=== PATIENT | female | born 1955 | race Caucasian/White ===

== ENCOUNTER 2017-09-26 12:44 | Emergency (ER) | payer OTHER ==
[2017-09-26] MEDS ORDERED: NA CHLORIDE 0.9% 1,000 ML ONE (13:13)
[2017-09-26] MEDS ORDERED: ONDANSETRON 4 MG/2 ML VIAL ONE (13:44)
[2017-09-26 13:49] LABS: Protime INR 0.99
[2017-09-26 13:57] LABS: Albumin 3.4 g/dL (3.4-5.0); Bilirubin Direct 0.1 mg/dL (0-0.2); Bilirubin Total 0.5 mg/dL (0.2-1.0); Magnesium 2.4 mg/dL (1.8-2.4); Potassium 4.1 mmol/L (3.5-5.1); Protein, Total 7.4 g/dL (6.4-8.2)
[2017-09-26 14:00] LABS: Urine Blood NEGATIVE (NEG); Urine Glucose NEGATIVE (NEG); Urine Protein TRACE (NEG); Urine Specific Gravity 1.025 (1.005-1.030); Urine pH 5.5 (5.0-7.0)
--- NOTE | 2017-09-26 14:08 | RAD REPORT ---
EXAM DESCRIPTION: RAD - Chest Single View - 09/26/2017 1:37 pm CLINICAL HISTORY: Dyspnea, syncope COMPARISON: None. TECHNIQUE: AP portable chest image was obtained 1319 hours . FINDINGS: Lung volumes are low. No peripheral mass or consolidation. No significant pulmonary edema. Heart size and vasculature are normal. Trachea is midline. Retrocardiac left base assessment is limited. Blunting of the left costophrenic angle is believed to be the affects of body habitus and portable technique. Significant pleural effusion is not suspected. There is no pneumothorax. Heart size is normal. No vascular engorgement. No gross bony abnormality s een. No acute aortic findings suspected. IMPRESSION: Examination is limited by portable technique and shallow inspiration. An acute cardiopul monary finding is doubtful.
--- NOTE | 2017-09-26 14:32 | RAD REPORT ---
EXAM DESCRIPTION: CT - Chest For Pe Angio - 09/26/2017 2:22 pm CLINICAL HISTORY: Shortness of breath, syncopal episode elevated D-dimer, dyspnea COMPARISON: None. TECHNIQUE: Dynamically enhanced 3 mm thick images of the chest were obtained during administration o f approximately 150mL Isovue 370 IV contrast. Coronal and oblique reconstruction images were generate d and reviewed. Exam utilizes a protocol to evaluate the pulmonary arterial tree. All CT scans are performed using dose optimization technique as appropriate and may include automated exposure control or mA/KV adjustment according to patient size. FINDINGS: No pulmonary emboli are identified. The aorta as imaged shows no acute or suspicious finding. No pericardial thickening or effusion. No infiltrate or mass in the lung parenchyma. No pleural effusion or pleural thickening. No mediastinal or hilar suspicious masses. No chest wall masses or abnormal axillary lymphadenopathy. No suspicious rib finding. Bilateral breast implants are in place. Thoracic spine degenerative malave es are present. No acute thoracic spine finding seen. IMPRESSION: No pulmonary emboli identified. No other significant or suspicious findings.
[2017-09-26 14:44] LABS: Absolute Lymphocytes (CBC) 1.7 K/uL (0.7-4.9); Absolute Monocytes 0.3 K/uL (0.1-1.3); Absolute Neutrophil 5.2 K/uL (1.8-8.0); Basophils % 0.7 % (0-1.3); Eosinophils % 0.7 % (0-4.4); Hematocrit 40.8 % (36.0-45.0); Lymphocytes % 23.2 % (15.3-44.8); MCH 33.2 pg (27.0-35.0); MCV 97.6 fL (80-100); Monocytes % 4.5 % (3.3-12.3); RBC Red Blood Cell Count 4.18 M/uL (3.86-4.86)
--- NOTE | 2017-09-26 15:10 | ER ---
Nurse's Notes [facility] Name: Ava Tellez Age: 62 yrs Sex: Female : 1955 Arrival Date: 09/26/2017 Time: 12:47 Bed 6 Private MD: Mahad Velazquez E Diagnosis: Syncope and collapse Presentation: 09/26 12:49 Presenting complaint: Patient states: i was at my friends house when i passed out, hj denies hitting head; witnesses states, passed out for 3-5 minutes; on triage, pt is sweating; T- 87; reports nausea and vomiting; denies chest pain or headache;. Transition of care: patient was not received from another setting of care. Onset of symptoms was September 26, 2017. Risk Assessment: Do you want to hurt yourself or someone else? Patient reports no desire to harm self or others. Initial Sepsis Screen: Does the patient meet any 2 criteria? No. Patient's initial sepsis screen is negative. Does the patient have a suspected source of infection? No. Patient's initial sepsis screen is negative. Care prior to arrival: None. 12:49 Method Of Arrival: Ambulatory hj 12:49 Acuity: LILI 3 hj 12:55 Note at one point in triage, pt complained of difficulty breathing, SOB and chest hj discomfort;. Triage Assessment: 12:53 General: Appears in no apparent distress. uncomfortable, Behavior is calm, cooperative, hj appropriate for age. Pain: Denies pain. Historical: - Allergies: 12:52 No Known Allergies; hj - Home Meds: 12:52 lisinopril 10 mg Oral tab 1 tab once daily [Active]; hj - PMHx: 12:52 Hypertension; hj - PSHx: 12:52 hip; Knee surgery; Cholecystectomy; hj - Immunization history:: Adult Immunizations up to date. - Social history:: Smoking status: Patient/guardian denies using tobacco, Patient/guardian denies using alcohol. - Ebola Screening: : Patient negative for fever greater than or equal to 101.5 degrees Fahrenheit, and additional compatible Ebola Virus Disease symptoms Patient denies exposure to infectious person Patient denies travel to an Ebola-affected area in the 21 days before illness onset. Screenin:53 Abuse screen: Denies threats or abuse. Denies injuries from another. Nutritional hj screening: No deficits noted. Tuberculosis screening: No symptoms or risk factors identified. Fall Risk None identified. Assessment: 13:35 General: Appears in no apparent distress. uncomfortable, obese, unkempt, Behavior is ae1 cooperative. Pain: Denies pain. Neuro: Level of Consciousness is awake, alert, obeys commands, Oriented to person, place, time, situation. Cardiovascular: Patient's skin is warm and dry. Respiratory: Airway is patent Respiratory effort is even, unlabored, Respiratory pattern is regular, symmetrical, Breath sounds are clear bilaterally. GI: Bowel sounds present X 4 quads. Abd is soft and non tender Reports nausea. : No signs and/or symptoms were reported regarding the genitourinary system. EENT: No signs and/or symptoms were reported regarding the EENT system. Derm: Skin is diaphoretic, Skin is pale, Skin temperature is warm. Musculoskeletal: Reports Generalized weakness. 13:49 Reassessment: Patient c/o nausea, provider notified, new orders received. ae1 14:39 Reassessment: Patient and/or family updated on plan of care and expected duration. Pain ae1 level reassessed. Patient returned from CT, at bedside. 14:46 Reassessment: Provider at bedside discussing plan of care. ae1 15:27 Reassessment: Patient appears in no apparent distress at this time. Patient and/or iw family updated on plan of care and expected duration. Pain level reassessed. Patient is alert, oriented x 3, equal unlabored respirations, skin warm/dry/pink. Patient states feeling better. Patient states symptoms have improved. Vital Signs: 12:53 BP 93 / 69; Pulse 86; Resp 18; Temp 97.8(O); Pulse Ox 98% on R/A; Weight 104.33 kg; mt Height 5 ft. 3 in. (160.02 cm); Pain 0/10; 13:25 BP 114 / 81 Supine; Pulse 72; Resp 14; Pulse Ox 99% on R/A; ae1 13:26 BP 107 / 83; Pulse 75; Resp 17; Pulse Ox 99% on R/A; mt 13:27 BP 117 / 90 Sitting; Pulse 77; Resp 14; Pulse Ox 99% ; ae1 13:29 BP 123 / 97 Standing; Pulse 84; Resp 16; Pulse Ox 98% on R/A; ae1 14:02 BP 129 / 87; Pulse 75; Resp 16; Pulse Ox 98% on R/A; ae1 12:53 Body Mass Index 40.74 (104.33 kg, 160.02 cm) wi ED Course: 12:47 Patient arrived in ED. mr 12:48 Mahad Velazquez MD is Private Physician. mr 12:51 Triage completed. hj 12:53 Arm band placed on right wrist. hj 12:53 Patient has correct armband on for positive identification. Placed in gown. Bed in low hj position. Call light in reach. Side rails up X 1. 12:58 João Landon MD is Attending Physician. kdr 12:58 Radu Schofield PA is PHCP. jr8 13:08 Mic Carpenter RN is Primary Nurse. ae1 13:10 EKG done, by gear technician. reviewed by Radu MAURER. at1 13:33 X-ray completed. Portable x-ray completed in exam room. Patient tolerated procedure jb2 well. 13:33 Inserted saline lock: 20 gauge in left antecubital area, using aseptic technique. Blood ae1 collected. 13:37 XRAY Chest (1 view) In Process Unspecified. EDMS 14:22 CT Chest For PE Angio In Process Unspecified. EDMS 15:09 Mahad Velazquez MD is Referral Physician. jr8 15:27 No provider procedures requiring assistance completed. IV discontinued, intact, iw bleeding controlled, No redness/swelling at site. Pressure dressing applied. Administered Medications: 13:14 Drug: NS 0.9% 1000 ml Route: IV; Rate: 1000 ml; Site: left antecubital; ae1 14:20 Follow up: IV Status: Completed infusion iw 13:59 Drug: Zofran 4 mg Route: IVP; Site: left antecubital; ae1 15:28 Follow up: Response: No adverse reaction iw Point of Care Testing: Blood Glucose: 12:53 Blood Glucose: 134 mg/dL; hj Ranges: Outcome: 15:09 Discharge ordered by . jr8 15:27 Discharged to home ambulatory, with family. iw 15:27 Condition: good 15:27 Discharge instructions given to patient, family, Instructed on discharge instructions, follow up and referral plans. Demonstrated understanding of instructions, follow-up care. 15:31 Patient left the ED. iw Signatures: Dispatcher [employer] EDMS João Landon MD MD kdr Rivera, Maria mr Felicity, Srini jb2 Lona Philippe, RN RN Radu Solis PA PA jr8 Irma jackson, director speech language EKG Tat1 Mohamud Myers RN RN hj Elliott, Andrea, RN RN ae1 Momo, [facility] Corrections: (The following items were deleted from the chart) 13:05 12:49 Presenting complaint: Patient states: i was at my friends house when i passed hj out, denies hitting head; witnesses states, passed out for 3-5 minutes; on triage, pt is sweating; T- 87; reports nausea and vomiting; denies chest pain or headache; hj 13:27 12:53 BP 93 / 69; Pulse 86bpm; Resp 18bpm; Pulse Ox 98% RA; Temp 87F Oral; 104.33 kg; mt Height 5 ft. 3 in.; BMI: 40.7; Pain 0/10; hj
--- NOTE | 2017-09-26 15:10 | EDPHYS ---
Physician Documentation [facility] Name: Ava Tellez Age: 62 yrs Sex: Female : 1955 Arrival Date: 09/26/2017 Time: 12:47 Bed 6 Private MD: Mahad Velazquez E ED Physician João Landon HPI: 09/26 14:38 This 62 yrs old Female presents to ER via Ambulatory with complaints of jr8 Passed Out Prior To Arrival. 14:38 The patient has experienced syncope, became unresponsive, lost consciousness. Onset: jr8 The symptoms/episode began/occurred acutely, today. Duration: This was a single episode. Context: the episode(s) was witnessed, by family. Associated injury: The patient did not suffer any apparent associated injury. Associated signs and symptoms: Pertinent positives: dizziness. Current symptoms: Currently, the patient is not experiencing any symptoms, the patient feels back to baseline, no decreased level of consciousness, no confusion, no dysphasia, no headache, no paralysis, no visual changes. The patient has not experienced similar symptoms in the past. The patient has not recently seen a physician. Patient stated that she was out in a barn but had fan out there. Was out there about 40 min. Stated that while standing felt suddenly sweaty and dizzy. Sat down. Soon after stated that they saw her pass out. They had laid her down at that time. Upon arrival here patient alert to person, place, time, event. Complains of general fatigue now . Historical: - Allergies: 12:52 No Known Allergies; hj - Home Meds: 12:52 lisinopril 10 mg Oral tab 1 tab once daily [Active]; hj - PMHx: 12:52 Hypertension; hj - PSHx: 12:52 hip; Knee surgery; Cholecystectomy; hj - Immunization history:: Adult Immunizations up to date. - Social history:: Smoking status: Patient/guardian denies using tobacco, Patient/guardian denies using alcohol. - Ebola Screening: : Patient negative for fever greater than or equal to 101.5 degrees Fahrenheit, and additional compatible Ebola Virus Disease symptoms Patient denies exposure to infectious person Patient denies travel to an Ebola-affected area in the 21 days before illness onset. ROS: 14:38 Eyes: Negative for injury, pain, redness, and discharge, ENT: Negative for injury, jr8 pain, and discharge, Neck: Negative for injury, pain, and swelling, Cardiovascular: Negative for chest pain, palpitations, and edema, Respiratory: Negative for shortness of breath, cough, wheezing, and pleuritic chest pain, Abdomen/GI: Negative for abdominal pain, nausea, vomiting, diarrhea, and constipation, Back: Negative for injury and pain, MS/Extremity: Negative for injury and deformity, Skin: Negative for injury, rash, and discoloration. 14:38 Neuro: Positive for dizziness, syncope, weakness. Exam: 14:38 Eyes: Pupils equal round and reactive to light, extra-ocular motions intact. Lids and jr8 lashes normal. Conjunctiva and sclera are non-icteric and not injected. Cornea within normal limits. Periorbital areas with no swelling, redness, or edema. ENT: Nares patent. No nasal discharge, no septal abnormalities noted. Tympanic membranes are normal and external auditory canals are clear. Oropharynx with no redness, swelling, or masses, exudates, or evidence of obstruction, uvula midline. Mucous membranes moist. Neck: Trachea midline, no thyromegaly or masses palpated, and no cervical lymphadenopathy. Supple, full range of motion without nuchal rigidity, or vertebral point tenderness. No Meningismus. Cardiovascular: Regular rate and rhythm with a normal S1 and S2. No gallops, murmurs, or rubs. Normal PMI, no JVD. No pulse deficits. Respiratory: Lungs have equal breath sounds bilaterally, clear to auscultation and percussion. No rales, rhonchi or wheezes noted. No increased work of breathing, no retractions or nasal flaring. Abdomen/GI: Soft, non-tender, with normal bowel sounds. No distension or tympany. No guarding or rebound. No evidence of tenderness throughout. Back: No spinal tenderness. No costovertebral tenderness. Full range of motion. Skin: Warm, dry with normal turgor. Normal color with no rashes, no lesions, and no evidence of cellulitis. MS/ Extremity: Pulses equal, no cyanosis. Neurovascular intact. Full, normal range of motion. Neuro: Awake and alert, GCS 15, oriented to person, place, time, and situation. Cranial nerves II-XII grossly intact. Motor strength 5/5 in all extremities. Sensory grossly intact. Cerebellar exam normal. Normal gait. Vital Signs: 12:53 BP 93 / 69; Pulse 86; Resp 18; Temp 97.8(O); Pulse Ox 98% on R/A; Weight 104.33 kg; mt Height 5 ft. 3 in. (160.02 cm); Pain 0/10; 13:25 BP 114 / 81 Supine; Pulse 72; Resp 14; Pulse Ox 99% on R/A; ae1 13:26 BP 107 / 83; Pulse 75; Resp 17; Pulse Ox 99% on R/A; mt 13:27 BP 117 / 90 Sitting; Pulse 77; Resp 14; Pulse Ox 99% ; ae1 13:29 BP 123 / 97 Standing; Pulse 84; Resp 16; Pulse Ox 98% on R/A; ae1 14:02 BP 129 / 87; Pulse 75; Resp 16; Pulse Ox 98% on R/A; ae1 12:53 Body Mass Index 40.74 (104.33 kg, 160.02 cm) mt MDM: 13:05 Patient medically screened. 8 15:07 Differential Diagnosis: cardiac arrhythmia, cerebrovascular accident, drug effect, jr8 emotional response, idiopathic syncope, pseudo seizure, seizure, transient ischemic attack, vasovagal episode. Data reviewed: vital signs, nurses notes, lab test result(s), EKG, radiologic studies, CT scan, plain films, and as a result, I will discharge patient. Data interpreted: Pulse oximetry: on room air is 98 %. Interpretation: normal. Counseling: I had a detailed discussion with the patient and/or guardian regarding: the historical points, exam findings, and any diagnostic results supporting the discharge/admit diagnosis, lab results, radiology results, the need for outpatient follow up, a bicycle i assembler, a family practitioner, to return to the emergency department if symptoms worsen or persist or if there are any questions or concerns that arise at home. Response to treatment: the patient's symptoms have resolved after treatment, patient is well hydrated. ED course: No acute findings on images. Patient feeling better. Recommended observation overnight in hospital but patient wishes to go home. Will send home with who will be with her for next 24 hours at least. Will come back if she worsens or another episode occurs . 09/26 13:05 Order name: Basic Metabolic Panel 8 09/26 13:05 Order name: CBC with Diff; Complete Time: 15:04 jr8 07/26 13:05 Order name: CPK 09/26 13:05 Order name: LFT's; Complete Time: 14:07 09/26 13:05 Order name: Magnesium; Complete Time: 14:08 09/26 13:05 Order name: NT PRO-BNP; Complete Time: 14:07 09/26 13:05 Order name: PT-INR; Complete Time: 14:08 09/26 13:05 Order name: Troponin (emerg Dept Use Only); Complete Time: 14:08 09/26 13:05 Order name: XRAY Chest (1 view); Complete Time: 14:21 09/26 13:05 Order name: DD; Complete Time: 14:07 09/26 13:06 Order name: Basic Metabolic Panel; Complete Time: 14:08 EDMS 09/26 13:06 Order name: Creatine Phosphokinase; Complete Time: 14:08 EDMS 09/26 13:53 Order name: CT Chest For PE Angio; Complete Time: 14:33 09/26 13:57 Order name: Urine Dipstick--Ancillary (enter results); Complete Time: 14:08 eb 09/26 13:02 Order name: EKG; Complete Time: 13:02 09/26 13:05 Order name: Cardiac monitoring; Complete Time: 13:24 09/26 13:05 Order name: EKG - Nurse/Tech; Complete Time: 13:24 09/26 13:05 Order name: IV Saline Lock; Complete Time: 13:24 09/26 13:05 Order name: Labs collected and sent; Complete Time: 13:25 09/26 13:05 Order name: O2 Per Protocol; Complete Time: 13:25 09/26 13:05 Order name: O2 Sat Monitoring; Complete Time: 13:09/26 13:05 Order name: Urine Dipstick-Ancillary (obtain specimen); Complete Time: 13:45 09/26 13:05 Order name: Orthostatics; Complete Time: 13:33 jr Administered Medications: 13:14 Drug: NS 0.9% 1000 ml Route: IV; Rate: 1000 ml; Site: left antecubital; ae1 14:20 Follow up: IV Status: Completed infusion iw 13:59 Drug: Zofran 4 mg Route: IVP; Site: left antecubital; ae1 15:28 Follow up: Response: No adverse reaction iw Point of Care Testing: Blood Glucose: 12:53 Blood Glucose: 134 mg/dL; hj Ranges: Critical Glucose Levels:Adult <50 mg/dl or >400 mg/dl <40 mg/dl or >180 mg/dl Disposition: 15:37 Co-signature as Attending Physician, João Landon MD I agree with the assessment and kdr plan of care. Disposition: 09/26/17 15:09 Discharged to Home. Impression: Syncope and collapse. - Condition is Stable. - Discharge Instructions: Syncope. - Medication Reconciliation Form, Thank You Letter, Antibiotic Education, Prescription Opioid Use form. - Follow up: Mahad Velazquez MD; When: Tomorrow; Reason: Recheck today's complaints, Continuance of care, Re-evaluation by your physician. - Problem is new. - Symptoms have improved. Signatures: Dispatcher [employer] EDMS João Landon MD MD [facility] Lona Philippe RN RN Radu Schofield PA PA jr8 Mohamud Myers RN RN Mic Carpenter RN RN ae1 Corrections: (The following items were deleted from the chart) 15:31 15:09 09/26/2017 15:09 Discharged to Home. Impression: Syncope and collapse. Condition iw is Stable. Forms are Medication Reconciliation Form, Thank You Letter, Antibiotic Education, Prescription Opioid Use. Follow up: Mahad Velazquez; When: Tomorrow; Reason: Recheck today's complaints, Continuance of care, Re-evaluation by your physician. Problem is new. Symptoms have improved. jr8
--- NOTE | 2017-09-26 19:05 | EKG ---
Test Date: 2017-09-26 Test Time: 13:05:28 Gas Technician: MAYELIN MEASUREMENT RESULTS: Intervals: Rate: 69 IA: 156 QRSD: 74 QT: 404 QTc: 432 [place]: P: 23 IA: 156 QRS: 10 T: 7 INTERPRETIVE STATEMENTS: Normal sinus rhythm Inferior infarct, age undetermined Abnormal ECG Compared to ECG 12/17/2005 10:04:21 Myocardial infarct finding now present Sinus bradycardia no longer present Electronically Signed On 09-26-17 19:04:46 CDT by Raphael Vazquez
== END 2017-09-26 15:31 | disposition home or self-care (01) ==
LOC: ER 12:44
DX: R55 Syncope and collapse (principal); I10 Essential (primary) hypertension
CPT/HCPCS: 36415; 71045; 71275; 80048; 80076; 81003; 82550; 82962; 83735; 83880; 84484; 85025; 85379; 85610; 93005; 96361; 96374; 99284; J2405; J7030; Q9967

== ENCOUNTER 2020-03-22 18:32 | Observation (INO) | payer OTHER ==
--- OUTSIDE RECORDS SUMMARY | 2020-03-22 18:35 | XMS REPORT | Summary of Care ---
:1955 Author Organization [facility] Address [address] [place] [id number] Care Team Providers Name Role Phone Caroline Mahad Devin Primary Care Provider Reason for Visit Reason Comments LAB covid testing- chills, body aches, headache, cough Encounter Details Date Type Department Care Team Description 03/14/2020 Traffic Incident Management Manager Visit [facility] Family Sabra Ta, SOLAR INSTALLATION FOREMAN [address] [place] [address] Exposure to Medicine - [facility], Adc Fam Pob I SARS-associated [address] [place] [address] coronaviru s ([address] Dx) [place] [address] Allergies No Known Allergiesdocumented as of this encounter (statuses as of 03/14/2020) Medications Medication Sig Dispensed Refills Start Date End Date Status hyoscyamine (LEVSIN) Take 1 Tab by 20 Tab 0 03/06/2015 Active 0.125 mg tablet mouth every 6 (six) hours as needed for Pain (scale 4-6). ondansetron (ZOFRAN Take 1 Tab by 20 Tab 0 03/06/2015 Active ODT) 8 mg mouth every 8 disintegrating tablet (eight) hours as needed for Nausea and Vomiting (N/V). cephALEXin 250 mg Take 2 capsules 9 capsule 0 01/02/2020 Active capsuleIndications: by mouth 2 (two) Puncture wound of left times daily. 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 documented as of this encounter Last Filed Vital Signs Not on filedocumented in this encounter Nursing Notes Mercedes Aguilar MA - 03/14/2020 9:20 AM CSTAva Tellez is a 65 year old female here for COVID Screening with a Nasopharyngeal Swab All droplet and contact precautions taken with appropriate PPE worn while interacting with patient. ? Goggles ? N95 Mask ? Gloves ? Gown RR18 Pulse Ox 98% Patient educated on plan of care for visit, swabbing technique, risks and benefits of test and length of time to receive results. Verbal consent obtained to perform test. CDC Fact Sheet for Patients nCoV Diagnostic Panel dated 05/17/2019 and Factsheet What to Do if Sick with COVID 19 04/27/19 provided. Patient swabbed per appropriate nasopharyngeal technique, and patient tolerated well. Patient was discharged from the testing clinic in stable condition. Mercedes Arndt MA 03/14/2020 9:37 AM Bilate nares swabbed during COVID19 nasopharyngeal swab. ITECTURAL ENGINEER documented in this encounter Plan of Treatment Name Type Priority Associated Diagnoses Order S chedule COVID-19 (MOLECULAR LAB Routine Exposure to SARS-asso ciated Ordered: 03/14/2020 TESTING coronavirus NUCLEIC ACID AMPLIFICATION) Health Maintenance Due Date Last Done Comments HEPATITIS C (HCV) SCREEN 1955 Depression Screening 1968 DTaP,Tdap,and Td Vaccines (1 - 01/24/1975 01/02/2020 Tdap) PAP SMEAR 01/24/1977 Breast Cancer Screening 1996 (MAMMOGRAM) COLON CANCER SCREENING ANNUAL 01/24/2006 FIT/FOBT COLON CANCER SCREENING FIT DNA 01/24/2006 EVERY 3 YEARS COLON CANCER SCREENING 01/24/2006 SIGMOIDOSCOPY EVERY 5 YEARS COLONOSCOPY 01/24/2006 Colorectal Cancer Screening 01/24/2006 Zoster Recombinant Vaccine 01/24/2006 (SHINGRIX) (1 of 2) INFLUENZA VACCINE Completed 11/03/2019 PNEUMOCOCCAL 0-64 YEARS COMBINED Aged Out No longer eligible based on SERIES patient's age to complete this topic documented as of this encounter Results Not on filedocumented in this encounter Visit Diagnoses Diagnosis Exposure to SARS-associated coronavirus - Primary documented in this encounter Additional Health Concerns Infection Onset Date Last Indicated Resolved Time COVID-19 Rule Out 03/14/2020 03/14/2020 documented as of this encounter documented as of this encounter
--- OUTSIDE RECORDS SUMMARY | 2020-03-22 18:35 | XMS REPORT | Summary of Care ---
:1955 Author Organization [facility] Address [address] [place] [id number] Care Team Providers Name Role Phone Mahad Velazquez Primary Care Provider Reason for Visit Reason Comments Results Encounter Details Date Type Department Care Team Description 03/16/2020 Telephone [facility] Urgent Provider, [facility] [address] [place] [address] [place] [phone] Allergies No Known Allergiesdocumented as of this encounter (statuses as of 03/17/2020) Medications Medication Sig Dispensed Refills Start Date [...] as of this encounter (statuses as of 03/17/2020) Active Problems Not on filedocumented as of this encounter (statuses as of 03/17/2020) Immunizations Name Administration Dates Next Due Td 01/02/2020 documented as of this encounter Social History Tobacco Use Types Packs/Day Years Used Date Never Smoker Sex Assigned at Date Recorded Not on file COVID-19 Exposure Response Date Recorded In the last month, have you been in contact with No / Unsure 03/14/2020 9:37 AM CERTIFIED REHABILITATION COUNSELOR someone who was confirmed or suspected to have Coronavirus / COVID-19? documented as of this encounter Last Filed Vital Signs Not on filedocumented in this encounter Miscellaneous Notes Telephone Encounter - Jenise Geiger LVN - 03/17/2020 11:29 AM CERTIFIED REHABILITATION COUNSELOR Notified results. elephone Encounter - Marissa Aguirre - 03/16/2020 11:15 AM CSTPatient is requesting a call back in regards to her covid results. Please advise. IFIED REHABILITATION COUNSELOR documented in this encounter Plan of Treatment Health Maintenance Due Date Last Done Comments [...] Results Not on filedocumented in this encounter Additional Health Concerns Infection Onset Date Last Indicated Resolved Time COVID-19 Confirmed 03/14/2020 03/14/2020 documented as of this encounter Insurance Payer Benefit Plan / Group Subscriber ID Effective Dates Phone Address Type [employer]ET[place] AET[place] CHOICE POS II [id number] 2019-Present POS [employer]ET[employer] AETNA PPO II [id number] 2015-Present PPO documented as of this encounter
--- OUTSIDE RECORDS SUMMARY | 2020-03-22 18:35 | XMS REPORT | Continuity of Care Document ---
:1955 Author Organization [facility] t Address [address] [place] [address] Care Team Providers Name Role Phone PITTS Primary Care Physician Unavailable SYSTEM, NOT IN Attending Clinician Unavailable Provider, Urgent Care Attending Clinician Unavailable Lab, Fam Pob I Attending Clinician Unavailable Diogenes VIVAS Attending Clinician Ben DOWLING, L Attending Clinician JOSHUA Attending Clinician Unavailable Joshua GIL Attending Clinician Shelbie DOWLING, A Attending Clinician Unavailable Sincere DOWLING D Attending Clinician Star GIL Attending Clinician Gloria Hoffmann Attending Clinician RAYSA Attending Clinician Unavailable Raysa PAPER HANGER Attending Clinician KALYAN Attending Clinician Unavailable Kalyan MAURER Attending Clinician Jose Martin RN, L Attending Clinician Unavailable Devin Maldonado MA Attending Clinician Unavailable Carlos GIL Attending Clinician Benjamin GIL S Attending Clinician Ana DOWLING D Attending Clinician Unavailable JOSHUA Admitting Clinician Unavailable Payers Payer Name Policy Type Policy Number Effective Date Expiration Date S bianca AETNA MANAGED [id number] MD Ibrahim CAREAETNA 00:00:00 [id number] Problems Condition Condition Condition Status Onset Resolution Last Treating Co mments Source Name Details Category Date Date Treatment Clinician Date Deformity Deformity Disease Active 2019-03 Overview: MD mathews of 0-19 Added Anderso reconstruc reconstruc 00:00: automatic n lluvia breast lluvia breast 00 ally from request for surgery [id number] Allergies, Adverse Reactions, Alerts Allergy Allergy Status Severity Reaction(s) Onset Inactive Treating Comm ents Source Name Type Date Date Clinician No Known DA Active U 2013-03 [facility] 04-04 [place] Allergie 00:00: d s 00 [facility] Social History Social Habit Start Date Stop Date Quantity Comments Source Sex Assigned At F MD Carmona on Exposure to Not sure MD Ibrahim SARS-CoV-2 (event) Tobacco use and 2020-02-18 2020-02-18 Never used MD Carmona on exposure 00:00:00 00:00:00 Alcohol intake 2020-02-18 2020-02-18 Lifetime MD Medina n 00:00:00 00:00:00 non-drinker (finding) Smoking Status Start Date Stop Date Source Never smoker MD Ibrahim Medications Ordered Filled Start Stop Current Ordering Indication Dosage Frequency Signature Comments Components Source Medication Medication Date Date Medication? Clinician (SIG) Name Name cefadroxil 2019-03 Yes Deformity 500mg Take 1 MD OLGUINICEF) 2-15 of capsule Anderso 500 mg 00:00: reconstruct (500 mg) n capsule 00 ed breast by mouth twice daily. traMADol 2019-03 Yes Deformity 50mg Take 1 MD (Ultram) 50 2-15 of tablet (50 An derso mg tablet 00:00: reconstruct mg) by n 00 ed breast mouth every 4 (four) hours as needed for moderate pain. lisinopril 2019- No 10mg Take 10 mg MD (JESSICAIL,Z 9-16 10-17 by mouth And erso ESTRIL) 10 00:00: 04:59 daily. n mg tablet 00 :00 lisinopril Yes Take by (NAAZ 9-21 mouth Anderso ESTRIL) 10 00:00: daily. n mg tablet 00 Vital Signs Vital Name Observation Time Observation Value Comments Source HEIGHT 2020-02-11 09:47:13 158.5 cm WEIGHT 2020-02-11 09:47:13 111 kg HEIGHT 2020-02-11 09:47:13 158.5 cm WEIGHT 2020-02-11 09:47:13 111 kg HEIGHT 2019-12-03 09:36:00 158.5 cm WEIGHT 2019-12-03 09:36:00 110.9 kg HEIGHT 2019-12-03 09:36:00 158.5 cm WEIGHT 2019-12-03 09:36:00 110.9 kg Systolic blood pressure 2020-02-22 19:04:33 125 mm[Hg] MD Ibrahim Diastolic blood pressure 2020-02-22 19:04:33 86 mm[Hg] MD Ibrahim Heart rate 2020-02-22 19:04:33 98 /min MD Malcom patel Body temperature 2020-02-22 19:04:33 36.39 Emiliana MD Gloria baldwin Respiratory rate 2020-02-22 19:04:33 20 /min MD Gloria baldwin Oxygen saturation in 2020-02-16 23:00:00 95 /min MD Ibrahim Arterial blood by Pulse oximetry Body height 2020-02-11 15:47:13 158.5 cm MD العراقي amanda Body weight 2020-02-11 15:47:13 111 kg MD Malcom patel BMI 2020-02-11 15:47:13 44.18 kg/m2 MD Malcom patel Procedures Procedure Date / Time Performed Performing Clinician [facility] e PATHOLOGY SURGICAL 2020-02-16 19:42:00 Mario Lewis MD Mathew on INTERPRETATION REMOVAL OF BREAST IMPLANT 2020-02-16 18:22:00 Mario Lewis MD IMMEDIATE INSERTION OF BREAST 2020-02-16 18:22:00 Mario Lewis MD PROSTHESIS FOLLOWING MASTOPEXY, MASTECTOMY OR IN RECONSTRUCTION MASTOPEXY 2020-02-16 18:22:00 Mario Lewis MD POC GLUCOSE SCREEN 2020-02-16 17:29:00 Mario Lewisers on COVID-19 (SARS-COV-2) 2020-02-14 17:09:00 Mario Lewis MD And vonon PCR-ASYMPTOMATIC MC CONFIRM ABORH TYPE 2020-02-14 17:01:00 Mimi Tabares MD Mathew on TYPE AND SCREEN 2020-02-14 17:00:00 Mimi Tabares MD ABORH 2020-02-14 17:00:00 Mimi Tabares MD ANTIBODY SCREEN 2020-02-14 17:00:00 Mimi Tabares MD CLOT EXPIRATION DATE 2020-02-14 17:00:00 Mimi Tabares MD rson TMP INTERPRETATION ANTIBODY 2020-02-14 17:00:00 Mimi Tabares MD SCREEN NEGATIVE BLOOD UREA NITROGEN 2020-02-11 14:26:00 Kiran Biggs MD Malcomkirstin patel COMPLETE BLOOD COUNT W/ 2020-02-11 14:26:00 Kiran Biggs MDrson DIFFERENTIAL SERUM CREATININE 2020-02-11 14:26:00 Kiran Biggs MD ELECTROLYTE PANEL 2020-02-11 14:26:00 Kiran Biggs MD n GLUCOSE, RANDOM 2020-02-11 14:26:00 Kiran Biggs MD HEMOGLOBIN A1C 2020-02-11 14:26:00 Kiran Biggs MD SERUM CREATININE 2020-02-11 14:26:00 Kiran Biggs MD .GLOMERULAR FILTRATION RATE 2020-02-11 14:26:00 Kiran Biggs MD Results CBC 2020-02-11 14:26:00 Kiran Biggs MD MANUAL DIFFERENTIAL 2020-02-11 14:26:00 Kiran Biggs MD EKG, 12-LEAD (SCHEDULED) 2020-02-11 00:00:00 Kiran Biggs MD MRI BREAST BILATERAL WO 2019-12-17 18:40:22 Alicia Gonzalez MDrson CONTRAST MAMMO DIGITAL SCREENING LEFT 2019-12-17 14:58:32 Alicia Gonzalez MD HC 2018-NCOV COVID-19 2019-12-01 13:12:00 Mario Lewis MD And sandeep Encounters Start End Encounter Admission Attending Care Care Encounter Source Date/Time Date/Time Type Type Clinicians Facility Department ID 2019-11-30 Outpatient SYSTEM, MDA MARYAM [id number] 09:51:00 PROVIDER Mathew o n 2019-11-18 Outpatient SYSTEM, MARYAM FRANCISCO [id number] 13:00:23 PROVIDER Mathew o n 2020-03-16 2020-03-16 Telephone Provider, [facility] [id number] 00:00:00 00:00:00 [facility] [id number] Care Surgical [id number] Specialti [id number] [address] [place] 2020-03-14 2020-03-14 Con[facility] Lab, Adc [facility] [id number] 09:25:48 09:40:48 Visit Fam Pob I Health [id number] [place] 4.2.7.2.686 Professio [id number] nal [address] 2020-02-22 2020-02-22 Outpatient DEBBI LEWIS, MDA MDA [id number] 13:01:40 14:05:20 MARIO mccain 2020-02-16 2020-02-16 Outpatient DEBBI LEWIS, MDA Plastic [id number] 08:57:00 17:32:00 MARIO mccain 2020-02-14 2020-02-14 Outpatient DBEBI TABARES, MDA MDA [id number] MD 10:53:28 23:59:00 MIMI mccain 2020-02-14 2020-02-14 Outpatient DEBBI BIGGS, MDA MDA [id number] MD 11:04:38 11:14:34 KIRAN Campuzanoers o adán 2020-02-11 2020-02-11 Outpatient DEBBI BIGGS, MDA MDA [id number] MD 08:15:00 23:59:00 KIRAN mccain 2020-02-11 2020-02-11 Outpatient DEBBI BIGGS, MDA MDA [id number] 11:00:24 11:55:04 KIRAN Campuzanoers o adán 2020-02-11 2020-02-11 Outpatient DEBBI LEWIS, MDA MDA [id number] 09:14:13 10:45:41 MARIO mccain 2020-02-11 2020-02-11 Outpatient DEBBI BIGGS, MDA MDA [id number] MD 08:31:02 09:14:18 KIRAN Campuzanoers o adán 2020-01-02 2020-01-02 Emergency [facility], [facility] [id number] 03:30:00 04:43:00 Michael Beltran [id number] [place] 4.2.7.2.686 [place] [id number] 2019-12-25 2019-12-25 Outpatient MDA MDA [id number] MD 08:49:37 08:49:37 Mathew o n 2019-12-25 2019-12-25 Outpatient MDA MDA [id number] MD 08:49:37 08:49:37 Mathew o n 2019-12-25 2019-12-25 Outpatient MDA MDA [id number] MD 08:49:34 08:49:34 Mathew o n 2019-12-25 2019-12-25 Outpatient MDA MDA [id number] MD 08:49:30 08:49:30 Mathew o n 2019-12-25 2019-12-25 Outpatient MDA MDA [id number] MD 08:49:20 08:49:20 Mathew o n 2019-12-25 2019-12-25 Outpatient MDA MDA [id number] MD 08:49:20 08:49:20 Mathew o n 2019-12-24 2019-12-24 Outpatient MDA MDA [id number] MD 13:52:41 13:52:41 Mathew o n 2019-12-24 2019-12-24 Outpatient MDA MDA [id number] MD 13:52:37 13:52:37 Mathew o n 2019-12-24 2019-12-24 Outpatient MDA MDA [id number] MD 13:52:36 13:52:36 Mathew o n 2019-12-17 2019-12-17 Outpatient EL JOSHUA, MDA MDA [id number] MD 10:09:06 10:09:06 MARIO Mathew o n 2019-12-17 2019-12-17 Outpatient EL JOSHUA, MDA MDA [id number] MD 09:26:54 09:26:54 MARIO Mathew o n 2019-12-03 2019-12-03 Outpatient EL JOSHUA, MDA MDA [id number] MD 09:25:51 10:56:41 MARIO Mathew o n 2019-12-01 2019-12-01 Outpatient EL MDA MDA [id number] MD 08:07:20 08:07:20 Mathew o n 2019-11-10 2019-11-10 Laboratory Lab, [facility] [id number] 08:58:37 09:18:37 Only Fam Pob I Health [id number] [place] 4.2.7.2.686 [facility] [id number] nal [address] One Results Test Description Test Time Test Comments Results Result Comments Source Pathology Surgical Interpretation 2020-02-19 18:39:00 Test Item Value Reference Range Interpretation Comme nts Diagnosis u0squXQmYBHvxTY5VhGrNUFgj1iad2TgyLHslZVwVBydtUDmlgFvjd59gPL8tL04XM3nVBWgYvL8HVSw viF4Ihc3OLKqZHRkjPVuW284p5amh8mczmWqkKR8bNxvJFZxCBXpSXolAEQrUiQqJSmhYrCwRXS9DUEx VLC2SFEypWBmZC81CwffNUEavZMpBOreQlWfZDvqvua (test code bVDUSktJev4OegN7fbFOweEwjR5Fos0MhWKovmWvsEBDkw96zc79gfV6dpTEzRHFkptRxkEAvKXZ1YOQ wYSShwGB6bCOlgPUgSTrsZhV5CSMlbyfoJZKjaJl1BkWnwMkkCeXmWOJvyK4pBU5mYDU1PxM1uCIkLS3 2diZ0bBVujPLbTZ7yG3H1dJMwBEIagbLwNGPxnQ8wcF = 34) VxHRtxIAFviGgqMIgbejKcrFLtZIH5JURfLGTchEbermvwfRSeSBoynHszblB0XBLzkcooNIWchAz3Zq FexPkpNpSePHLnYJNdnOKieSPoOJ63WPVpqg7tdlLmlQHlvN6hdNfoehIyqqg4AvuqFLWzoAxnRNwxiw BccGFyfQ== Gross q8mcbKYdRYGwpFZJZUFmFVwhjrXsIQOddAMgW2EmsuvtERqfWS9eYQ9tgPgyvRRlpPEbPL1EGFHgWpHl NZXcqGDerxZmZqJtUKIpdAKtgUL4VARdKO1qcfkmCIgiNRwqDTPpyzX5TZOorAHyQ7IyQBJeTK1fhdll JGF0RQcssY6zwuQTGiotXo6ljABlnViiGaSoQgZhDTV Descriptio lFSHeOXVgaZjmOQTxDYn8mO1PIfvyVHN4BNEGWgwpEPKxNL0Na3ptFUHamYQqVXC4IFgqpUXaODZuULW qDKt0QQRrHUejaIOhDV9hfOidMjjlqXfob3CylDOoNQgmTPNbYBMpELxeYZNsZV7URzKqPSKgSQL3WeO eVQi5OKw5KF8QXwZxSNCeOXsjVet9JBBqSZt1AHxePY n (test 1QTWGoRVEzDyNmHIN0XLbiZkTbCQRqTnMaNFThGCJyGJkyYLpmegVpASOiLNEgTGxdBftjEIjnZ78peQ slqW0dVofmkcEgWAI8EHBpsyMGMpxqlXZtzvuryImhWiTpxDTuOdNfDVrjvQAudCOfFGopbhIhhsnlEK CSSuxjcRRupLjmWGEgGwMpZeKwZTI7OXBzHFF6IOTxz code = DBvCR53OFEzHXN8MOOfYBDvzPWuzXRoKZ20XMNor2NxtADic34xpXWpYUSqNAGaTNYkUH3oNKPnGLsrD sJbQBDyMFArZVF5ZQNmTlOiaWN1FmUyV43fWYZxHONdcMVokLCtHR01ZSKpcTslLKD8zZWrUGQcSVGcU SVdhQceCEvmuFbggZMpUiYuoxTmkdBlPT1pJHolOC14 [id number] hKS5hE2rNLocNt2tpME9wF7hJEjeAHSvFLEatLonl5W6RLAySOJoTsPyU1Qlh6EsqSyveR2yWDcoaqCl ItJapcY8WCdrvmYsImN3lMJfy0DqO2dmLY1zJNZDqq5xtiOvsby1DeRtIEFms3DiI6U2ZLZyPLanv7ay EHStOMhcz0HjOLqXSFTIKF4JRD2qaNC1KWgQE7VHJ6u ) [file] hcZnMyMCANClxwbGFpblxlcGljTmVzdERvYzBccGxha H13MKMecZIlEIV4FC9tGQJzggzhCZUxCKKmINT8TGnjcX91rJWnHPQnKEMxuYOfdK4Rg2uxNDCvbXZoU EW6IZwobIVmZHLrVFTwCEznTbFvB8CAIFRtQgV6IAjaUJLsSWz2UGihI2QJSMOpQEL5HhWhFPs8FuT9U Ow5TQHXEl7dZaW2YPU7PqHcSQX1YHKaKGlxhWYpMRpe BhLSuemygOEbFONiUOIoQSjxMvZcGXrapSLySM1keYrkZPNyEaDmFyjpxXUqOD5KSGAmFAkbUKAqlWQF NLH0PL8tPEPRMzpyvMYtCKGzpZsyEDoaqB6zTF8MHXj5spHgXSZeUtQsHRNStjGaa3CmUMReU7s6XAEr xZDaJU92NTIqpDfqlAHigvBla4WdaS1brAZupIsbPh2 lJWayEB6yvHclUBQrNGXkRX9jXSVjUPgnAuPaSUQvTJToAVN7BWJ5FhHgaEM5CqPtQ67uCPCwAUJvgOW clWTyUT89YCJblSomWCP1jOAyMOUuKIJlSLXzwTxgVVoudVdkmBYmKrMulgLcrsQzHO5eGEytKQ68lLS 7uX2iUIwyNb1aiUG7vL7sVWxoXIMxEUEqzHatr8F0FK N2ZgLcWuHaQ5Edh5CmiWehxM3hDKenrhItFpVkwcK0OBzbrnAqDnL7eYTzl4VgW6ypWH5iIEKMwc4uog Pxczg9VbGiKalOYeotiKMghgbjeUvsWuXhgZHaKkKbqWvhjG70YJKgxJCjGSS3JV8wHIHfmjvgOZFlFE ZtYUS7CDfgdJ02rFCpYEKoLKVyzKXoiX6BGHKgCTN0L BtpzT36mAEeRI8ETCFoQHM1VZGifFShNAR0BE8qeY2FuE== Disclaimer z0vyqEMzARPckUZzGsWxPRWlDMKmr8vtBSXwrWGwQoIqSsFrQlHrHlyjpCZxJMXlNdJwk1kqc339pHIo z3jyGOQnZlK1pUSyJCDvmVRfD998HXCgYHurf2bpd1ZkBPUyiBKio3I2KLUZpiyuaUd1dGtzO74eb1Y3 QpmoD6yyLWLlMQBeE6YoLZ3fWWUkZum8LCE0NMK8RPL (test code iEJEkZ1PdGQ2hZXDpnZAfZCl1t0ikhFviXHLpBPM5x8ofGJybxvKuAE6ybp0cyGn3u8sdhrMsKBMuTCM ezCSYBUHhX4XhvXhgNx3zrCf1tHxlEzgkCQB4Hlh7WK1jfj83rfd0hWsfUNTjhugrNjG6SLgtVTGyojs lGBa0GBgjFZVxsRZ7VABwzUBrX3AxCUHxRU3qnar3RZ = 9844) W0YGycCHGdNeN3NRNdiWQqNDNyiQkfSNqlc064PVN4RaTlWL1bZ9Ydm1F9xS1zaTXqEHGlsCDlFsJnSK Gimt1dwWIqPPdue6UmDIF3wsX5aNOgvNTsFINcPC94Cebhr7PfMrdyRFB7MKTrtpXfa6Drv7mgDyKqcw XpE3xxM2XhCFEoWTSkTOBmGiEczrOpd2Vbi8OgiXQri Gx5j5hpDJIoJSRklIzow9baJGR0DKXlU2S4mJEwy1onMHnvHPPbiPD4soD5GGGjpMCpK3CxbC4aOQFiD G1agpq1s7tcORZ5HYetBGWqUwS0yeT9HPWngZPmSIFiwUfdFVjrg530NJG0RkEvOREws4OdY7RwoXkvW 75glIhfF56wEYLibItlgY2jyAvfuH1cRpSpLjObSXbv qVhqzLBsilecNBxghjR1KIpbyhuuZYElPAxoB5jfAmLwSHDbaXjmYNpmn6RaXTKhYQStOygwnlS6DXTG v62hMCSlh0VtMYQzyL8kkMFjFMfelbXndUU0UOqqtzJfVkBfgrLvTGKwyU4wSQPjML8lXJXfozKjfj4i tbJsHTCrDMKmD6MfucppwUsvymVtPFThdi0bpkAoGTO 6IINTTX7QLPZgKESkr83wLCWjrUwoyF4ldIKfieGeXLCar2ZmkQ6rkAHJVPOoL7lvAN6gOLtyk8AbiXB ecIZquDC4AJYec7FtWpRcylYkpSFbmBMjZ2UmkWblL7ycKXGiVZTahhOrjHImw5XmGHDmcCU6pKXvWZ0 LGyAMq64rQALrCZEVboVbFIKqdJvxrSR2mtM7aY9eIz ZYQiTeyYAjbZLxKfclWMPmf740mf2jauW5PGWdOFLufvlko3ElEGYlDSNhdO26CIAtVDUxqo9izorwcH JpmvCvM0Pjkvu3vW1cQQGbSObjNDYnIAYeRrWktWLlWsPwQuByrHwccLnpKYrgDvQfCTFaNSlwN4olZk FcZnMyMlxwYXJ9 [facility] Glucose [id number] 17:50:28 Test Item Value Reference Range Interpretation Comments POC Glucose (test 87 mg/dL 70-99 Capillary blood samples, code = 17164-8) e.g. obtaine d by fingerstick, jerome y have inaccurate resu lts in patients with d ecreased peripheral bloo d flow. Method descript ion: All results are santana sured using Electrochemistr y test methodology. Th e glucose in the sample mixe s with the reagents on the test strip. The reaction pr oduces an electric curren t. The amount of curre nt produced is proportional to the glucose concent ration in the blood. PO Sample Type Venous (test code = 9554) MD IbrahimCOVID-19 (SARS-CoV-2) PCR-Asymptomatic [id number] 02:11:21 Test Item Value Reference Range Interpretation Comments COVID19 (SARS Not Detected Not Detected This test is a CoV-2) Result qualitative (test code = reverse-transcr iptase 17897-7) polymerase sharlene n reaction (RT-PC R) developed for t he Andrew JUNE 680 0 system and inte nded for the detecti on of SARS CoV-2 RNA in human nasophary ngeal specimens from patients who me et COVID-19 clinic al and/or epidemiological criteria. This assay has been approv ed by the FDA for use only under Emergency Use Authorization ( EUA) in laboratories that have been CLIA-certified to perform moderate-comple xity and high-comple xity tests. The performance characteristics of this assay were verified by the Microbiology Laboratory at [facility], CLIA Accreditation # : [id number] and CAP Accreditation # : [id number]. Result s must be interpreted within the context of all relevant clinic al and laboratory find ings and should not form the sole basis for a diagnosis or treatment decis ion. "Presumptive Positive" resul ts are due to partial amplification o f SARS-CoV-2 targ ets and indicates l ow amounts of viru s present in the specimen at or near the limit of detection. Regardless, individuals wit h "Presumptive Positive" resul ts should be manag ed per institutional guidelines as individuals pos itive for SARS-CoV-2 virus, including use o f appropriate inf ection control protoco ls. Internal contro ls are included to ass ess for possible amplification inhibitors. If inhibition is detected, testi ng is repeated and if inhibition is confirmed the specimen is res ulted as "Invalid". W hen an "Invalid" resul t occur, it is recommended to wait 3 days before submitting a ne w specimen for te sting if clinically indicated. COVID19 SARS PAPER HANGER Swab Source (test code = 92492) COVID19 SARS Pre-OR Procedure Indication (test code = 62418) MD IbrahimTMP Interpretation Antibody Screen [id number] 00:24:42 Test Item Value Reference Range Interpretation Comments TMP Auto Neg At the present ABSC Interp time, patient (test code = plasma shows no ____KEILA PAPPAS 7535) evidence of RBC CHRIS TRAVIS MD alloantibodies. - [id number] lluvia by: KEILA GHOSH MD - [id number] Date/Time: 02.01 18:24 PM NEEDLEWORKER Transcribed [place] e/Time: 02.14.2020 18:2 4 PM CSTElectronical ly Signed By: KEILA GHOSH MD - [id number] on 18:24 PM MD IbrahimAntibody [id number] 19:03:15 Test Item Value Reference Range Interpretation Comments ABSC. (test code = 890-4) Negative ABSC MD [id number] 19:03:14 Test Item Value Reference Range Interpretation Comments ABORh. (test code = 882-1) O POS MD IbrahimClot Expiration [id number] 19:03:11 Test Item Value Reference Range Interpretation Comments T & S Expiration (test code = 02/17/2020 5318) MD IbrahimConfirm [id number] 19:02:35 Test Item Value Reference Range Interpretation Comments ABORh Confirm. (test code = 882-1) O POS MD IbrahimHemoglobin [id number] 15:19:58 Test Item Value Reference Range Interpretation Comments A1C (test code = 5.5 % 4.3-5.6 HbA1c value s >=6.5% are 4632) diagnostic of d iabetes mellitus.Diagno sis should be confirmed by repeat testing.Therape utic Action suggested: >8.0 % HbA1c; Goal oftherapy: <7.0% HbA1c MD IbrahimGlucose, [id number] 15:19:56 Test Item Value Reference Range Interpretation Comments Glucose Random (test 111 mg/dL 70-199 Effecti ve 09/28/15, the code = 9360) glucose referen ce intervals have been updated based o n [place] [employer] eddie delines (Standards of M edical Care in Diabete s 2016. Diabetes Care 2 016; 39: S13-S22)Fasting blood glucose:Normal: 70 99 mg/dLImpair ed fasting glucose (increased risk for diabetes or pre-diabetes): 100 125 mg/dLDiabe juliano mellitus: >/= 1 26 mg/dLRandom blo od glucose:Normal: 70 199 mg/dLNote: Random glucose >100 mg /dL is associated with increased risk for diabetes Testin g Performed at [facility] Lab [facility], [address], [place] [address] MD IbrahimGlomerular Filtration [id number] 15:19:55 Test Item Value Reference Range Interpretation Comments eGFR-AA (test 104 >=60 mL/min/1.73 sq. Normal eGFR >= 60 code = 8062) m mL/min/1.73 m2 Note: The eGFR is calcula lluvia using the CKD-EPI equ ation. The eGFR declines w ith age. eGFR <60 mL/min /1.73 m2 is considered as " decreased". This equation s hould only be used for pat ients 18 and older. Acco rding to the National Ki dney Foundation's Ki dney Disease Outcome Quality Initiative (KDO QI) classification and 2012 Kidney Disease Improving Global Outcomes (KDIGO) Clinical Practi ce Guideline, the stage of CKD should be c ategorized based on estima lluvia GFR. Stage Descripti on GFR mL/min/1.73 m21 Normal or high GFR >=902 Mildly de creased GFR 60-893a Mildly to moder ately decreased GFR 45-593b Moderately to s everely decreased GFR 30-444 Severely decrea sed GFR 15-295 Kidney failure <15 Testing Performed at [facility] Lab Ambu [facility] Bldg, [address], [place] [address] eGFR-PURNIMA (test 90 >=60 mL/min/1.73 sq. Breanna l eGFR >= 60 code = 8063) m mL/min/1.73 m2 Note: The eGFR is calcula lluvia using the CKD-EPI equ ation. The eGFR declines w ith age. eGFR <60 mL/min /1.73 m2 is considered as " decreased". This equation s hould only be used for pat ients 18 and older. Acco rding to the National Ki dney Foundation's Ki dney Disease Outcome Quality Initiative (KDO QI) classification and 2012 Kidney Disease Improving Global Outcomes (KDIGO) Clinical Practi ce Guideline, the stage of CKD should be c ategorized based on estima lluvia GFR. Stage Descripti on GFR mL/min/1.73 m21 Normal or high GFR >=902 Mildly de creased GFR 60-893a Mildly to moder ately decreased GFR 45-593b Moderately to s everely decreased GFR 30-444 Severely decrea sed GFR 15-295 Kidney failure <15 Testing P erformed at [facility] Lab Ambulat [facility], [facility], [address], [place] [address] MD IbrahimElectrolyte [id number] 15:19:54 Test Item Value Reference Range Interpretation Comments Sodium Lvl (test code = 140 136- 145 mEq/L Te sting Performed at [facility] 7311) Lab [facility] Bldg, [facility], [address], [place] [address] Potassium Lvl (test code 4.1 3.5- 5.1 mEq/L T esting Performed at [facility] = 1572) Lab [facility], [facility], [address], [place] [address] Chloride (test code = 105 98- 107 mEq/L Testi ng Performed at [facility] 5270) Lab [facility], [address] [place] [address], [address], [place] [address] CO2 (test code = 5227) 26 22- 29 mEq/L Testi ng Performed at [facility] Lab [facility], [facility], [address], [place] [address] Anion Gap (test code = 9 4- 14 mEq/L Testi ng Performed at [facility] 9344) Lab [facility], [address] [place] [address], [address], [place] [address] MD Ibrahim.Serum [id number] 15:19:53 Test Item Value Reference Range Interpretation Comments Creatinine (test code 0.71 mg/dL 0.51-0.95 Testin g Performed at = 5366) [facility], [address] [facility], [address], [place] [address] MD [id number] 15:19:52 Test Item Value Reference Range Interpretation Comments BUN (test code = 19 mg/dL 6-23 Testing Per formed at [facility] 5055) [facility] [employer] [facility], [address], [address], [place] [address] MD I[id number] 15:03:02 Test Item Value Reference Range Interpretation Comments Neutrophil % (test code 44.8 % 42-66 As p art of = 6491) Differential performed at [facility] [employer] [facility], [address] [facility], [address], [place] [address] Lymphocyte % (test code 41.7 % 24-44 = 6194) Monocyte % (test code = 9.1 % 2-7 H 6422) Eosinophil % (test code 2.9 % 1-4 = 5520) Basophil % (test code = 1.3 % 0-1 H 5068) IGRE % (test code = 0.2 % 0-0.4 IGRE % c ount includes 5958) Metamyelocytes, Myelocytes, and Promyelocytes. As part of Differe ntial performed at [facility] [employer] [facility], [address], [address], [place] [address] Neutrophil Abs (test 2.47 K/uL 1.7-7.3 code = 6492) Lymphocyte Abs (test 2.30 K/uL 1-4.8 code = 6195) Monocyte Abs (test code 0.50 K/uL 0.08-0.7 = 6423) Eosinophil Abs (test 0.16 K/uL 0.04-0.4 code = 5521) Basophil Abs (test code 0.07 K/uL 0-0.1 = 5069) IG Abs (test code = 0.01 K/uL 0-0.04 5954) Lab Interpretation Abnormal (test code = 51410-6) MD Ibrahim.[id number] 15:02:59 Test Item Value Reference Range Interpretation Comments WBC (test code = 8034) 5.5 K/uL 4-11 RBC (test code = 6932) 4.23 4.00- 5.50 M/uL Hgb (test code = 5898) 13.7 12.0- 16.0 gm/dL A s part of CBC or as an individual orderable testi ng performed at [facility] [employer], [address], [place] [address] Hct (test code = 5860) 43.6 % 37-47 As pa rt of CBC or as an individual orderable testi ng performed at [facility] [employer], [address], [place] [address] MCV (test code = 6222) 103 fL 82-98 H MCH (test code = 6220) 32.4 pg 27-31 H MCHC (test code = 6221) 31.4 31.0- 36.0 gm/dL RDW-SD (test code = 46.4 fL 35.1-46.3 H 6972) RDW-CV (test code = 12.3 % 12-15.5 6971) Platelet count (test 317 K/uL 140-440 As part of CBC or as code = 6832) an individual orderable testi ng performed at [facility], [address], [address], [place] [address] MPV (test code = 6282) 9.7 fL 4-10.4 INRBC (test code = 0.0 % <=0.0 The INRBC (instrument 5974) NRBC) value ref lects the enumeration of nucleated red b lood cells contained in a 200uL sampleof whole blood analyzed by the instrument. Thi s value maydiffer from the NRBC value reported in a m anual differential,wh ich is based on a 100 cell differential. A s part of CBC testing performed at [facility] [id number], [place], [place] [address] Lab Interpretation Abnormal (test code = 82344-2) MD IbrahimScreening Mammogram - [id number] 18:07:33 Test Item Value Reference Range Interpretation Comments IMP (test code = IMP) Asymmetry in the left breast requires additional imaging evaluation. Additionalviews and possible ultrasound to follow are recommended. BI-RADS Category 0:Incomplete: Needs Additional Imaging Evaluation PXN (test code = PXN) Interface, Radiology Results In - 12/25/2019 1:07 PM CDTCLINICAL INDICATION:Patient is a 64 year old female and is seen for screening. MAMMO DIGITAL SCREENING LEFTDigital Mammogram evaluated with Computer Aided Detection (CAD). COMPARISON:The present examination has been compared to prior imaging studies performed atan outside location on 11/17/2014, 02/09/2016, 02/12/2017, 01/16/2018 and02/09/2019. FINDINGS:There are scattered areas of fibroglandular density. There is a retro-pectoral saline implant in the left breast. There is an asymmetry measuring 0.6 centimeters seen in the CC view in the leftbreast upper hemisphere at 12 to 1 o'clock located 4 centimeters from the nipple. IMPRESSION:Asymmetry in the left breast requires additional imaging evaluation. Additionalviews and possible ultrasound to follow are recommended. BI-RADS Category 0:Incomplete: Needs Additional Imaging Evaluation Lab Interpretation Abnormal (test code = 63594-4) MD MotaI Breast Bilateral without [id number] 18:47:00Bilateral intact saline implants as noted above. ACR BI-RADS Category: 2. [facility], Radiology Results In - 12/17/2019 1:49 PM CDTFULL RESULT:Examination: MRI BREAST BILATERAL WO CONTRAST, 12/17/20191:40 PMClinical History: A 64-year-old woman with remote history of right breast cancer status post mastectomy with implant reconstruction.Indication: It is not known what type of implant was used forright breast reconstruction. A breast MRI to evaluate for implant integrity has been requested.Comparison: No prior breast MRI for comparison.. Left mammogram performed same date, earlier time. .Technique: This breast MRI was performed for implant integrity and not for mass evaluation. No intravenous contrast was administered. After initial imaging using a T2 sequence, it was determined that the bilateral implants are saline.Findings:Right breast: Benign postsurgical changes consistent with historyof mastectomy with saline implant reconstruction. The saline implant is intact.Left breast: A retropectoral intact saline implant is identified.IMPRESSION:Bilateral intact saline implants as noted above.ACR BI-RADS Category: 2.MD IbrahimMD COVID-19 (MARELY-CoV-2) PCR [id number] 04:03:56 Test Item Value Reference Interpretation Comments Range COVID19 SARS New Patient Indication (test code = 40301) COVID19 SARS Result Not Detected Not Detected (test code = 49856-4) COVID19 SARS SARS-CoV-2 NOT Detected. Interpretation (test Reference Range: Not code = 49085) Detected Methodology: The Grace RealTime SARS-CoV-2 assay is a qualitative real-time reverse educational institution president polymerase chain reaction (dining chair seat cushion trimmer-PCR) test to detect RNA from SARS-CoV-2 in nasal, nasopharyngeal and oropharyngeal swabs from patients with signs and symptoms of infection who are suspected of COVID-19 by their health care provider. The Grace RealTime SARS-CoV-2 performed on the Techfoo000 System is a dual target assay with primers and probes for the RdRp and N genes. Results must be interpreted within the context of all relevant clinical and laboratory findings, and epidemiological risk factors. Positive results are indicative of the presence of SARS-CoV-2 RNA; clinical correlation with patient history and other diagnostic information is necessary to determine patient infection status. Positive results do not rule out bacterial infection or co-infection with other viruses. Negative results do not preclude SARS-CoV-2 infection and should not be used as the sole basis for patient management decisions. The Grace RealTime SARS-CoV-2 assay is for in vitro diagnostic use under FDA Emergency Use Authorization only. Testing is limited to laboratories certified under the Clinical Laboratory Improvement Amendments of 1988 (CLIA), 42U.S.C. 263a, to perform high complexity tests. The Test was performed by the CLIA-certified, high-complexity Molecular Diagnostics Laboratory (MDL) at [facility] under the Food and Drug Administration (FDA) s Emergency Use Authorization. Factsheet for patients: https://www.mdanderson.org/ AbbottFactSheetPatientsFact sheet for healthcare providers: https://www.mdanderson.org/ AbbottFactSheetHCP Test performed by:[facility] [address] [place] [address] MD Ibrahim
--- OUTSIDE RECORDS SUMMARY | 2020-03-22 18:35 | XMS REPORT | Summary of Care ---
:1955 Author Organization [facility] - Health Address [address] [place] [address] Care Team Providers Name Role Phone Mahad Velazquez Primary Care Provider Reason for Visit Reason Comments Puncture Auth/Cert Status Reason Specialty Diagnoses / Referred By Referred To Procedures Contact Contact Emergency Medicine Ad[facility] Em ergency Dept [address] [place] [address] Fax: Encounter Details Date Type Department Care Team Description 01/02/2020 Emergency ADC-Emergency Michael Alexander, Puncture wound of left Department foot, initial encounter [address] [facility] (Primary Dx) [place] [address] [id number] [place], [place] [address] Allergies No Known Allergiesdocumented as of this encounter (statuses as of 01/02/2020) Medications Medication Sig Dispensed Refills Start Date [...] as of this encounter (statuses as of 01/02/2020) Active Problems Not on filedocumented as of this encounter (statuses as of 01/02/2020) Immunizations Name Administration Dates Next Due Td 01/02/2020 documented as of this encounter Social History Tobacco Use Types Packs/Day Years Used Date Never Smoker Sex Assigned at Date Recorded Not on file COVID-19 Exposure Response Date Recorded In the last month, have you been in contact with No / Unsure 01/02/2020 3:31 AM CDT someone who was confirmed or suspected to have Coronavirus / COVID-19? documented as of this encounter Last Filed Vital Signs Vital Sign Reading Time Taken Comments Blood Pressure 143/77 01/02/2020 3:33 AM CDT Pulse 75 01/02/2020 3:33 AM CDT Temperature 36.3 C (97.4 F) 01/02/2020 3:33 AM CDT Respiratory Rate 20 01/02/2020 3:33 AM CDT Oxygen Saturation 97% 01/02/2020 3:33 AM CDT Inhaled Oxygen Concentration - - Weight 108.9 kg (240 lb) 01/02/2020 3:33 AM CDT Height 160 cm (5' 3") 01/02/2020 3:33 AM CDT Body Mass Index 42.51 01/02/2020 3:33 AM CDT documented in this encounter Discharge Instructions Michael Yost MD - 01/02/2020 DIAGNOSIS Diagnoses that have been ruled out: None Diagnoses that are still under consideration: None Final diagnoses: Puncture wound of left foot, initial encounter NO LIFE-THREATENING FINDINGS ON TODAY'S EXAM. PROCEDURES IN THE ER TODAY: No orders of the defined types were placed in this encounter. MEDICATIONS ADMINISTERED IN THE ER TODAY AND DISCHARGE MEDICATIONS: Orders Placed This Encounter Medications tetanus-diphtheria toxoids (TDVAX) 2-2 Lf unit/0.5 mL injection 0.5 mL cephALEXin (KEFLEX) capsule 250 mg cephALEXin 250 mg capsule FOLLOW-UP RECOMMENDATIONS: RECOMMEND FOLLOW-UP WITH A PRIMARY CARE PROVIDER OR SPECIALIST IN 2-5 DAYS, ESPECIALLY IF NO IMPROVEMENT IN SYMPTOMS. MAY FOLLOW-UP WITH A PROVIDER OF YOUR CHOICE, SUCH : 1. A PHYSICIAN OF YOUR CHOICE 2. [facility], . LOCATIONS IN [facility] 3. [facility], [address], [place]; [phone] OR, IF YOU WISH TO FOLLOW-UP WITHIN THE [facility], MAY TRY THESE OPTIONS (CLINIC APPOINTMENTS AVAILABLE ON MDMR-VW-VZPR BASIS): 1. SCHEDULE AN APPOINTMENT ONLINE AT [email or web address] 2. OR CALL THE [facility] AT OR 3. OR CALL YOUR [facility] PHYSICIAN'S OFFICE DIRECTLY IF YOU ARE ALREADY AN ESTABLISHED [facility] PATIENT. RETURN TO ER FOR WORSENING OF SYMPTOMS AttachmentsThe following attachments cannot be sent through Care Everywhere. Punctures, First Aid (Mozambican)Puncture Wound (Foot) (Mozambican)documented in this encounter ED Notes Irma Melchor RN - 01/02/2020 3:31 AM CDTCC: Pt reports dropping a pairing knife (after cutting cooked meat) on her left foot at 1730 last night. She reports it bled profusely until she bandaged it. Pt arrives with bleeding controlled after bandaging removed. Pt reports pain with weight bearing on left foot. PMHx: See chart MEDS:denies blood thinners Tetanus: Over 5 yrs Awake, alert, oriented, resp reg unlabored, skin warm, color appropriate for race, moves all ext without difficulty, amb with walker Appears in no distress Michael Alexander MD - 01/02/2020 3:23 AM CDT [facility] Emergency Department Note Patient Name: Ava Tellez Date of : 1955 64 year old female Treatment Room: TX2/IL2 Primary Care Physician: Mahad Velazquez Patient Escorted by: Self [9] Mode of Arrival: Personal means [1] EMS Treatment Prior to ED Arrival: MENTAL HEALTH PRACTITIONER treatment: None Travel and Exposure Screening: Symptoms Does patient have any of these symptoms?: (not recorded) Exposure Screening Has patient had contact with someone with a communicable disease in the last month?: (not recorded) Diseases exposed to:: (not recorded) Is Patient ?: (not recorded) Exposure Date: (not recorded) Chief Complaint: Chief Complaint Patient presents with Puncture History of Present Illness: Ava Tellez is a 64 year old female who presented to the ED for evaluation of injury sustained toleft foot at home. Pt reports that a pairing knife fell unto her foot and she sustained a punctured wound to the foot that she was unable to stop the bleeding from the wound. Denies any other injuries or complaints Past Medical History/Immunizations: Past Medical History: Diagnosis Date Cancer Tetanus received in last 5 years: No Allergies: No Known Allergies Past Social History: Tobacco Use Never Smoker. Past Surgical History: Past Surgical History: Procedure Laterality Date BREAST SURGERY JOINT SURGERY TRIGEMINAL NERVE BLOCK Review of Systems: Review of Systems Constitutional: Negative. HENT: Negative. Eyes: Negative. Respiratory: Negative. Breasts: Negative. Cardiovascular: Negative. Gastrointestinal: Negative. Genitourinary: Negative. Musculoskeletal: Negative. Skin: Positive for wound. Neurological: Negative. Psychiatric/Behavioral: Negative. Endocrine: Endocrine negative Physical Exam: ED Triage Vitals [01/02/20 0333] Weight 108.9 kg (240 lb) Actual or estimated Estimated by patient/family report Height 1.6 m (5' 3") BP (!) 143/77 Pulse 75 Resp 20 Temp 36.3 C (97.4 F) Temp source Oral SpO2 97 % Measured on Room air Physical Exam Vitals signs and nursing note reviewed. Constitutional: General: She is not in acute distress. Appearance: Normal appearance. She is well-developed. She is obese. She is not ill-appearing, toxic-appearing or diaphoretic. HENT: Head: Normocephalic and atraumatic. Right Ear: External ear normal. Left Ear: External ear normal. Nose: Nose normal. No congestion or rhinorrhea. Mouth/Throat: Mouth: Mucous membranes are moist. Pharynx: Oropharynx is clear. No oropharyngeal exudate. Eyes: General: No scleral icterus. Right eye: No discharge. Left eye: No discharge. Extraocular Movements: Extraocular movements intact. Conjunctiva/sclera: Conjunctivae normal. Pupils: Pupils are equal, round, and reactive to light. Neck: Musculoskeletal: Normal range of motion and neck supple. No neck rigidity. Thyroid: No thyromegaly. Cardiovascular: Rate and Rhythm: Normal rate and regular rhythm. Pulses: Normal pulses. Heart sounds: Normal heart sounds. No murmur. Pulmonary: Effort: Pulmonary effort is normal. No respiratory distress. Breath sounds: Normal breath sounds. No stridor. No wheezing, rhonchi or rales. Chest: Chest wall: No tenderness. Abdominal: General: Bowel sounds are normal. There is no distension. Palpations: Abdomen is soft. There is no mass. Tenderness: There is no abdominal tenderness. There is no left CVA tenderness, guarding or rebound. Hernia: No hernia is present. Musculoskeletal: Normal range of motion. General: Signs of injury present. No swelling, tenderness or deformity. Right lower leg: No edema. Left lower leg: No edema. Lymphadenopathy: Cervical: No cervical adenopathy. Skin: General: Skin is warm and dry. Capillary Refill: Capillary refill takes less than 2 seconds. Coloration: Skin is not jaundiced or pale. Findings: Lesion present. No bruising, erythema or rash. Neurological: General: No focal deficit present. Mental Status: She is alert and oriented to person, place, and time. Cranial Nerves: No cranial nerve deficit. Sensory: No sensory deficit. Motor: No weakness or abnormal muscle tone. Coordination: Coordination normal. Gait: Gait normal. Deep Tendon Reflexes: Reflexes normal. Psychiatric: Behavior: Behavior normal. Thought Content: Thought content normal. Judgment: Judgment normal. Radiology: No results found for this visit on 01/02/20. Lab Results (24h): No results found for this or any previous visit (from the past 24 hour(s)). Orders and Treatments: No orders of the defined types were placed in this encounter. Orders Placed This Encounter Medications tetanus-diphtheria toxoids (TDVAX) 2-2 Lf unit/0.5 mL injection 0.5 mL cephALEXin (KEFLEX) capsule 250 mg cephALEXin 250 mg capsule ED COURSE MDM: Coding Scoring Tools: No data recorded Diagnosis/Impression: ICD-10-CM ICD-9-CM 1. Puncture wound of left foot, initial encounter S91.332A 892.0 Disposition/Condition: ED Disposition ED Disposition Condition Comment Disch - Home Stable Discharge Medications: Patient's Medications START taking these medications CEPHALEXIN 250 MG CAPSULE Take 2 capsules by mouth 2 (two) times daily. CONTINUE taking these medications which have NOT CHANGED HYOSCYAMINE (LEVSIN) 0.125 MG TABLET Take 1 Tab by mouth every 6 (six) hours as needed for Pain (scale 4-6). ONDANSETRON (ZOFRAN ODT) 8 MG DISINTEGRATING TABLET Take 1 Tab by mouth every 8 (eight) hours asneeded for Nausea and Vomiting (N/V). START taking Modified Medications as Prescribed No medications on file STOP taking these medications No medications on file Follow-up: Electronically signed by: Michael Alexander MD 01/02/2020 3:59 AM documented in this encounter Miscellaneous Notes ED Nurse Note - Soha Radford RN - 01/02/2020 4:31 AM CDTPt given printed and verbal discharge instructions regarding punture wound, encouraged hydration, Prescriptions provided: Keflex Discussed antibiotic therapy and to take until all completed unless adverse reaction occurs - if occurs, discontinue medication and follow up with pcp/seek medical attention Pt verbalized understanding of instructions, pt awake alert oriented, resp reg unlabored, skin w/d, color appropriate for race, moves all ext well,pt encouraged to follow up with PCP. Advised to seek medical attention for new/prolonged/worsening of symptoms, Symptoms improved No adverse reaction to meds given in ER noted upon discharge Awake, alert oriented, resp reg unlabored, skin w/d, pt leaving amb with steady gait, in no apparent distress, documented in this encounter Plan of Treatment Health Maintenance Due Date Last Done Comments HEPATITIS C (HCV) SCREEN 1955 Depression Screening 1968 DTaP,Tdap,and Td Vaccines (1 - 01/24/1975 Tdap) PAP SMEAR 01/24/1977 Breast Cancer Screening [...] filedocumented in this encounter Visit Diagnoses Diagnosis Puncture wound of left foot, initial enc ounter - Primary documented in this encounter Administered Medications Medication Order MAR Action Action Date Dose Rate Site cephALEXin (KEFLEX) capsule 500 Given 01/02/2020 4:19 AM CDT 50 0 mg mg 500 mg, Oral, Q6H, First dose (after last modification) on 01/02/20 at 0600, Until Discontinued, DUTCH, Reason for Anti-Infective: Empiric Non-Surgical Prophylaxis, Duration of therapy: 72 hours Medication Order MAR Action Action Date Dose Rate Site tetanus-diphtheria Given 01/02/2020 4:11 AM 0.5 mL Left Deltoid-IM toxoids (TENIVAC) 5-2 Lf CDT unit/0.5 mL injection 0.5 mL 0.5 mL, Intramuscular, ONCE, 1 dose, 01/02/20 at 0515, Routine documented in this encounter documented as of this encounter
[2020-03-22] MEDS ORDERED: BENZONATATE 100 MG CAP PO ONE (22:01)
[2020-03-22] MEDS ORDERED: NA CHLORIDE 0.9% 250 ML ONE (22:02)
[2020-03-22] MEDS ORDERED: MORPHINE 4 MG/ML SYR ONE (22:02)
[2020-03-22 22:22] LABS: Basophils % 0.3 % (0-1.3); Hematocrit 43.3 % (36.0-45.0); Lymphocytes % 37.9 % (15.3-44.8); MPV 9.1 fL (7.6-11.3)
[2020-03-22 22:24] LABS: Protime INR 1.02
[2020-03-22] MEDS ORDERED: ONDANSETRON 4 MG/2 ML VIAL ONE (22:35)
[2020-03-22] MEDS ORDERED: METHYLPREDNISOLONE 40 MG INJ ONE (22:37)
[2020-03-22 22:39] LABS: ALT/SGPT 97 U/L (12-78); AST/SGOT 84 U/L (15-37); Albumin 3.3 g/dL (3.4-5.0); Alkaline Phosphatase 60 U/L (45-117); BUN Blood Urea Nitrogen 15 mg/dL (7-18); Bicarbonate 27 mmol/L (21-32); Bilirubin Direct 0.1 mg/dL (0-0.2); Bilirubin Total 0.5 mg/dL (0.2-1.0); Glucose Level 116 mg/dL (74-106); Magnesium 2.4 mg/dL (1.8-2.4); NT PRO-BNP 23 pg/mL (<125); Potassium 3.8 mmol/L (3.5-5.1); Protein, Total 7.8 g/dL (6.4-8.2); Sodium Level 139 mmol/L (136-145); Troponin (Emerg Dept Use Only) < 0.02 ng/mL (0.0-0.045)
[2020-03-23] MEDS ORDERED: AZITHROMYCIN 500 MG INJ IVPB ONE (00:49)
[2020-03-23] MEDS ORDERED: NA CHLORIDE 0.9% 250 ML ONE (00:50)
[2020-03-23] MEDS ORDERED: NA CHLORIDE 0.9% 500 ML ONE (00:50)
[2020-03-23] MEDS ORDERED: NITROGLYCERIN 0.4 MG/TAB SL ONE (00:50)
[2020-03-23] MEDS ORDERED: CEFTRIAXONE/SWI 1gm 1 GM/10 ML SYR ONE (00:50)
--- NOTE | 2020-03-23 01:07 | EDPHYS ---
Physician Documentation [facility] Name: Ava Tellez Age: 65 yrs Sex: Female : 1955 Arrival Date: 03/22/2020 Time: 18:34 Bed 8 Private MD: ED Physician Harish Verde HPI: 03/22 21:25 This 65 yrs old Female presents to ER via Ambulatory with complaints of Chest cp Pain, Covid +. 21:25 The patient or guardian reports chest pain that is located primarily in the diaphragm. cp Onset: 2 day(s) ago. The pain radiates to back. Associated signs and symptoms: Pertinent positives: cough, headache, Pertinent negatives: abdominal pain, diaphoresis, lower extremity pain, lower extremity swelling, syncope. 21:25 The chest pain is described as a pressure. Duration: The patient or guardian reports a cp single episode, that is still ongoing, and unchanged. Modifying factors: The symptoms are alleviated by nothing. the symptoms are aggravated by nothing. 21:25 Patient reports testing positive for COVID-19 1 week ago. cp Historical: - Allergies: 18:51 No Known Allergies; ca1 - Home Meds: 18:51 lisinopril 10 mg Oral tab 1 tab once daily [Active]; ca1 - PMHx: 18:51 Hypertension; ca1 - PSHx: 18:51 hip; Knee surgery; Cholecystectomy; ca1 - Immunization history:: Flu vaccine is up to date. - Social history:: Smoking status: Patient denies any tobacco usage or history of. ROS: 21:25 Constitutional: Negative for body aches, chills, fever, poor PO intake. cp 21:25 ENT: Negative for ear pain, sore throat, difficulty swallowing, difficulty handling cp secretions. 21:25 Cardiovascular: Positive for chest pain, of the lower chest bilaterally, Negative for edema, palpitations. 21:25 Respiratory: Positive for cough, shortness of breath, Negative for wheezing. 21:25 Abdomen/GI: Negative for abdominal pain, nausea, vomiting, and diarrhea. 21:25 Back: Positive for radiated pain. 21:25 : Negative for urinary symptoms. 21:25 Neuro: Negative for altered mental status, dizziness, headache, syncope, weakness. 21:25 All other systems are negative. Exam: 21:25 ECG was reviewed by the Attending Physician. cp 21:29 Constitutional: The patient appears in no acute distress, alert, awake, cp non-diaphoretic, non-toxic, well developed, well nourished, obese. 21:29 Head/Face: Normocephalic, atraumatic. cp 21:29 Eyes: Periorbital structures: appear normal, Conjunctiva: normal, no exudate, no injection, Sclera: no appreciated abnormality, Lids and lashes: appear normal, bilaterally. 21:29 ENT: External ear(s): are unremarkable, Nose: is normal, Mouth: Lips: moist, Oral mucosa: pink and intact, moist, Posterior pharynx: Airway: no evidence of obstruction, patent, swelling, is not appreciated, erythema, is not appreciated, exudate, is not appreciated. 21:29 Neck: ROM/movement: is normal, is supple, no meningismus, no nuchal rigidity. 21:29 Chest/axilla: Inspection: normal, Palpation: is normal, no crepitus, no tenderness. 21:29 Cardiovascular: Rate: tachycardic, Rhythm: regular, Edema: is not appreciated, JVD: is not appreciated. 21:29 Respiratory: the patient does not display signs of respiratory distress, Respirations: normal, no use of accessory muscles, no retractions, labored breathing, is not present, Breath sounds: bronchial sounds, that are mild, are heard diffusely, decreased breath sounds, are not appreciated, stridor, is not appreciated, wheezing: is not appreciated. 21:29 Abdomen/GI: Inspection: abdomen appears normal, Palpation: abdomen is soft and non-tender, in all quadrants. 21:29 Back: pain, that is mild, of the left subscapular area and right subscapular area, ROM is normal. 21:29 Skin: no rash present. 21:29 Neuro: Orientation: to person, place \T\ time. Mentation: is normal, Motor: moves all fours, strength is normal, Sensation: is normal. Vital Signs: 18:47 BP 120 / 89; Pulse 100; Resp 18 S; Temp 98.5(TE); Pulse Ox 98% on R/A; Weight 108.86 kg ca1 (R); Height 5 ft. 3 in. (160.02 cm) (R); Pain 8/10; 22:47 BP 141 / 89; Pulse 65; Resp 14; Pulse Ox 95% ; rv 18:47 Body Mass Index 42.51 (108.86 kg, 160.02 cm) ca1 MDM: 21:23 Patient medically screened. [facility] 03/23 00:00 Differential diagnosis: abnormal EKG, acute myocardial infarction, acute pericarditis, cp cholecystitis, Cholelithiasis costochondritis, pleurisy, pneumonia, pulmonary embolus, stable angina, unstable angina. 01:01 Data reviewed: vital signs, nurses notes, lab test result(s), EKG, radiologic studies, cp CT scan, plain films. 01:05 ED course: VSS. Patient continues to reports chest pain after administration of nitro. cp Will admit for cardiac r/o. 03/22 21:23 Order name: Basic Metabolic Panel; Complete Time: 23:17 [facility] 03/23 00:25 Interpretation: Normal except: GLUC 116; GFR 86. 03/22 21:23 Order name: CBC with Diff; Complete Time: 22:29 [facility] 03/22 21:23 Order name: LFT's; Complete Time: 23:17 [facility] 03/23 00:25 Interpretation: Normal except: AST 84; ALT 97; ALB 3.3; GLOB 4.5; A/G 0.7. 03/22 21:23 Order name: Magnesium; Complete Time: 23:17 [facility] 03/22 21:23 Order name: NT PRO-BNP; Complete Time: 23:17 [facility] 03/22 21:23 Order name: PT-INR; Complete Time: 22:29 [facility] 03/22 22:29 Interpretation: Reviewed. 03/22 21:23 Order name: Troponin (emerg Dept Use Only); Complete Time: 23:17 [facility] 03/22 21:38 Order name: Urine Microscopic Only 03/22 21:54 Order name: D-Dimer; Complete Time: 22:29 [facility] 03/22 22:29 Interpretation: Abnormal: D-DIMER 1641. 03/23 05:39 Order name: Troponin I [facility] 03/23 05:39 Order name: Lipid Profile [facility] 03/23 05:39 Order name: T4 Free [facility] 03/23 05:39 Order name: Thyroid Stimulating Hormone [facility] 03/22 21:23 Order name: XRAY Chest (1 view) [facility] 03/22 22:30 Order name: CT Chest For PE Angio cp 03/23 05:47 Order name: COVID-19 rv 03/23 07:35 Order name: CORONAVIRUS [facility]TX 03/23 08:14 Order name: SARS-COV-2 RT PCR [facility] 03/23 12:19 Order name: Troponin I [facility] 03/22 18:51 Order name: EKG; Complete Time: 18:52 ca1 03/22 18:51 Order name: EKG - Nurse/Tech; Complete Time: 18:51 ca1 03/22 21:23 Order name: EKG; Complete Time: 21:24 [facility] 03/22 21:23 Order name: Cardiac monitoring; Complete Time: 21:52 [facility] 03/22 21:23 Order name: IV Saline Lock; Complete Time: 21:53 [facility] 03/22 21:23 Order name: Labs collected and sent; Complete Time: 21:53 [facility] 03/22 21:23 Order name: O2 Per Protocol; Complete Time: 21:53 [facility] 03/22 21:23 Order name: O2 Sat Monitoring; Complete Time: 21:53 [facility] 03/23 09:19 Order name: Diet High Fiber; Complete Time: 09:19 bd 03/23 09:19 Order name: Diet Heart Healthy; Complete Time: :20 bd EC/19 21:25 Rate is 95 beats/min. Rhythm is regular. FL interval is normal. QRS interval is normal. cp QT interval is normal. T waves are Inverted in lead III. Interpreted by me. Reviewed by me. Administered Medications: 21:52 Drug: morphine 2 mg Route: IVP; Site: left antecubital; ea 21:52 Drug: Tessalon Perle 200 mg Route: PO; 03/23 01:25 Follow up: Response: No adverse reaction 03/22 21:52 Drug: NS 0.9% 250 ml Route: IV; Rate: bolus; Site: left antecubital; ea 03/23 01:40 Follow up: IV Status: Completed infusion; IV Intake: 250ml 03/22 22:23 Drug: morphine 2 mg Route: IVP; Site: left antecubital; ea 03/23 01:25 Follow up: Response: No adverse reaction 03/22 22:24 Drug: SOLU-Medrol 60 mg Route: IVP; Site: left antecubital; 03/23 01:26 Follow up: Response: No adverse reaction ea 03/22 22:24 Drug: Zofran (Ondansetron) 4 mg Route: IVP; Site: left antecubital; rv 03/23 01:26 Follow up: Response: No adverse reaction ea 00:38 Drug: Rocephin 1 grams Route: IV; Rate: calculated rate; Site: left antecubital; ea 01:39 Follow up: Response: No adverse reaction; IV Status: Completed infusion rv 00:42 Drug: Nitroglycerin 0.4 mg Route: Sublingual; ea 01:26 Follow up: Response: No adverse reaction ea 00:42 Drug: NS 0.9% 500 ml Route: IV; Rate: bolus; Site: right antecubital; ea 01:39 Follow up: IV Status: Completed infusion; IV Intake: 500ml rv 01:15 Drug: Demerol 25 mg Route: IVP; Site: left antecubital; ea 01:27 Follow up: Response: No adverse reaction; Pain is decreased; RASS: Alert and Calm (0) ea 01:16 Not Given (Other Intervention Used): Zithromax 500 mg PO once ea Disposition: : Chart complete. cp Disposition: 03/23/20 01:06 Hospitalization ordered by Karan Hernandez for Observation. Preliminary diagnosis are Chest pain, unspecified, Coronavirus infection, unspecified, Pneumonia due to other specified infectious organisms. - Bed requested for Telemetry/MedSurg (observation). - Status is Observation. sv - Condition is Stable. - Problem is new. - Symptoms have improved. Addendum: 03/30/2020 18:23 Co-signature as Attending Physician, Harish Vedre MD. m a2 Signatures: Dispatcher [employer] EDMS Jenise Ivey RN RN sv Woody, Diana, RN RN dw Page, Corey, PA PA cp Essence Christian RN RN ea Alzahri, Mohammad, MD MD ma2 Colby Larson RN RN rv Haylee Cloud RN RN ca1 Corrections: (The following items were deleted from the chart) 03/22 21:54 21:39 D-DIMER+COAG.LAB.BRZ ordered. EDMS EDMS 03/23 01:33 01:06 Hospitalization Ordered by Karan Hernandez MD for Observation. Preliminary dw diagnosis is Chest pain, unspecified; Coronavirus infection, unspecified; Pneumonia due to other specified infectious organisms. Bed requested for Telemetry/MedSurg (observation). Status is Observation. Condition is Stable. Problem is new. Symptoms have improved. cp 11:55 01:33 03/23/2020 01:06 Hospitalization Ordered by Karan Hernandez MD for Observation. dw Preliminary diagnosis is Chest pain, unspecified; Coronavirus infection, unspecified; Pneumonia due to other specified infectious organisms. Bed requested for [facility] ER HOLD. Status is Observation. Condition is Stable. Problem is new. Symptoms have improved. dw 12:58 11:55 03/23/2020 01:06 Hospitalization Ordered by Karan Hernandez MD for Observation. sv Preliminary diagnosis is Chest pain, unspecified; Coronavirus infection, unspecified; Pneumonia due to other specified infectious organisms. Bed requested for Telemetry/MedSurg (observation). Status is Observation. Condition is Stable. Problem is new. Symptoms have improved. dw
--- NOTE | 2020-03-23 01:07 | ER ---
Nurse's Notes [facility] Name: Ava Tellez Age: 65 yrs Sex: Female : 1955 Arrival Date: 03/22/2020 Time: 18:34 Bed 8 Private MD: Diagnosis: Chest pain, unspecified;Coronavirus infection, unspecified;Pneumonia due to other specified infectious organisms Presentation: 03/22 18:47 Chief complaint: Patient states: Tested Covid+ a week ago. Chest pain started 2 days ca1 ago, radiating to the back, constant, sharp. Coronavirus screen: Client denies travel out of the [place] in the last 14 days. Client reports previous positive COVID test result. Date of collection: March 16, 2020 Staff notified of need for isolation. Ebola Screen: Patient negative for fever greater than or equal to 101.5 degrees Fahrenheit, and additional compatible Ebola Virus Disease symptoms Patient denies exposure to infectious person. Patient denies travel to an Ebola-affected area in the 21 days before illness onset. No symptoms or risks identified at this time. Initial Sepsis Screen: Does the patient meet any 2 criteria? No. Patient's initial sepsis screen is negative. Does the patient have a suspected source of infection? No. Patient's initial sepsis screen is negative. Risk Assessment: Do you want to hurt yourself or someone else? Patient reports no desire to harm self or others. Onset of symptoms was March 22, 2020. 18:47 Method Of Arrival: Ambulatory ca1 18:47 Acuity: LILI 3 ca1 Triage Assessment: 18:47 Cardiovascular: Rhythm is sinus rhythm. ca1 Historical: - Allergies: 18:51 No Known Allergies; ca1 - Home Meds: 18:51 lisinopril 10 mg Oral tab 1 tab once daily [Active]; ca1 - PMHx: 18:51 Hypertension; ca1 - PSHx: 18:51 hip; Knee surgery; Cholecystectomy; ca1 - Immunization history:: Flu vaccine is up to date. - Social history:: Smoking status: Patient denies any tobacco usage or history of. Screenin:11 Abuse screen: Denies threats or abuse. Denies injuries from another. Nutritional rv screening: No deficits noted. Tuberculosis screening: No symptoms or risk factors identified. Fall Risk None identified. Assessment: 21:30 General: Appears comfortable, Behavior is calm, cooperative. rv 21:30 Pain: Complains of pain in chest Pain does not radiate. Pain began suddenly. Neuro: rv Level of Consciousness is awake, alert, obeys commands, Oriented to person, place, time, situation. Cardiovascular: Rhythm is sinus rhythm. Respiratory: Airway is patent Respiratory effort is even, unlabored, Breath sounds are clear bilaterally. Derm: Skin is intact. Vital Signs: 18:47 BP 120 / 89; Pulse 100; Resp 18 S; Temp 98.5(TE); Pulse Ox 98% on R/A; Weight 108.86 kg ca1 (R); Height 5 ft. 3 in. (160.02 cm) (R); Pain 8/10; 22:47 BP 141 / 89; Pulse 65; Resp 14; Pulse Ox 95% ; rv 18:47 Body Mass Index 42.51 (108.86 kg, 160.02 cm) ca1 ED Course: 18:34 Patient arrived in ED. ds1 18:50 Triage completed. ca1 18:51 Arm band placed on right wrist. ca1 21:23 Deepak Martínez PA is PHCP. cp 21:23 Harish Verde MD is Attending Physician. cp 21:24 Colby Larson, NITESH is Primary Nurse. rv 21:25 Initial lab(s) drawn, by me, sent to lab. Inserted saline lock: 20 gauge in left rv antecubital area, using aseptic technique. Blood collected. 21:25 No provider procedures requiring assistance completed. Patient maintains SpO2 rv saturation greater than 95% on room air. 21:50 XRAY Chest (1 view) In Process Unspecified. EDMS 22:11 Patient has correct armband on for positive identification. lunchroom monitor on. Pulse rv ox on. NIBP on. 23:29 CT Chest For PE Angio In Process Unspecified. EDMS 03/23 01:05 Karan Hernandez MD is Hospitalizing Provider. cp 01:38 IV is patent, with fluids infusing freely, Patient admitted, IV remains in place. rv 06:48 COVID swab sent to lab. instructed Edson with outside lab to please run INHOUSE. sg 07:36 Primary Nurse role handed off by Colby Larson, RN sv 07:36 Jenise Ivey, NITESH is Primary Nurse. sv 08:42 CORONAVIRUS Sent. sv 08:42 COVID-19 Sent. sv Administered Medications: 03/22 21:52 Drug: morphine 2 mg Route: IVP; Site: left antecubital; ea 21:52 Drug: Tessalon Perle 200 mg Route: PO; ea 03/23 01:25 Follow up: Response: No adverse reaction ea 03/22 21:52 Drug: NS 0.9% 250 ml Route: IV; Rate: bolus; Site: left antecubital; ea 03/23 01:40 Follow up: IV Status: Completed infusion; IV Intake: 250ml rv 03/22 22:23 Drug: morphine 2 mg Route: IVP; Site: left antecubital; ea 03/23 01:25 Follow up: Response: No adverse reaction ea 03/22 22:24 Drug: SOLU-Medrol 60 mg Route: IVP; Site: left antecubital; rv 03/23 01:26 Follow up: Response: No adverse reaction ea 03/22 22:24 Drug: Zofran (Ondansetron) 4 mg Route: IVP; Site: left antecubital; rv 03/23 01:26 Follow up: Response: No adverse reaction ea 00:38 Drug: Rocephin 1 grams Route: IV; Rate: calculated rate; Site: left antecubital; ea 01:39 Follow up: Response: No adverse reaction; IV Status: Completed infusion rv 00:42 Drug: Nitroglycerin 0.4 mg Route: Sublingual; ea 01:26 Follow up: Response: No adverse reaction ea 00:42 Drug: NS 0.9% 500 ml Route: IV; Rate: bolus; Site: right antecubital; ea 01:39 Follow up: IV Status: Completed infusion; IV Intake: 500ml rv 01:15 Drug: Demerol 25 mg Route: IVP; Site: left antecubital; ea 01:27 Follow up: Response: No adverse reaction; Pain is decreased; RASS: Alert and Calm (0) ea 01:16 Not Given (Other Intervention Used): Zithromax 500 mg PO once ea Intake: 01:39 IV: 500ml; Total: 500ml. rv 01:40 IV: 250ml; Total: 750ml. rv Outcome: 01:06 Decision to Hospitalize by Provider. cp 01:38 Admitted to ER Hold. Please see [facility] for further documentation. rv 01:38 Condition: good 01:38 Instructed on the need for admit. 12:58 Patient left the ED. sv Signatures: Dispatcher [employer] EDJenise Lowery, RN RN Christoph Hart RN RN Chaya Valenzuela ds1 Deepak Martínez PA PA cp Antunez, Elena, RN RN ea Vicente, Ronaldo RN NITESH rv Haylee Cloud RN RN ca1
[2020-03-23] MEDS ORDERED: MEPERIDINE HCL 25 MG/ML SYR ONE (01:24)
--- NOTE | 2020-03-23 01:29 | P.HP ---
Certification for Inpatient Patient admitted to: Observation With expected LOS: <2 Midnights Patient will require the following post-hospital care: None Practitioner: I am a practitioner with admitting privileges, knowledge of patient current condition, hospital course, and medical plan of care. Services: Services provided to patient in accordance with Admission requirements found in Title 42 Section 412.3 of the Code of Federal Regulations <Cyrus Poe - Last Filed: 03/23/20 01:27> Patient History Date of Service: 03/23/20 Primary Care Provider: Dr. Velazquez Reason for admission: Chest pain History of Present Illness: 65-year-old female with history of hypertension presents to the emergency department for chest pain. Patient also tested positive for COVID on 03/16/2020. Patient reports for the last 2-3 days she has had sharp chest pain to the anterior chest wall radiating to the back, pain is not exacerbated or relieved by anything that she has noticed, patient denies previous pain similar to this. Patient also has recently had cosmetic breast surgery in mid February. Patient reports she has had stress tests in the past but and thinks it was probably about 5 years ago. Labs unremarkable, CT PE protocol pending, EKG without acute changes. ED provider wishes to admit patient under observation for chest pain rule out. - Past Medical/Surgical History -: Hypertension -: Cosmetic breast surgery Psychosocial/ Personal History: Patient lives with family - Family History Family History: Reviewed- Non-Contributory - Social History Smoking Status: Never smoker Alcohol use: No CD- Drugs: No Caffeine use: No Place of Residence: Home <Cyrus Poe - Last Filed: 03/23/20 01:27> Date of Service: 03/27/20 <Karan Hernandez - Last Filed: 03/27/20 20:26> Allergies No Known Allergies Allergy (Unverified 09/26/17 15:37) Review of Systems 10-point ROS is otherwise unremarkable Cardiovascular: Chest Pain <Cyrus Poe - Last Filed: 03/23/20 01:27> Physical Examination - Physical Exam General: Alert, In no apparent distress HEENT: Atraumatic, PERRLA, Mucous membr. moist/pink, EOMI, Sclerae nonicteric Neck: Supple, 2+ carotid pulse no bruit, No LAD Respiratory: Clear to auscultation bilaterally, Normal air movement Cardiovascular: Regular rate/rhythm, Normal S1 S2 Gastrointestinal: Normal bowel sounds, No tenderness Musculoskeletal: No tenderness Integumentary: No rashes Neurological: Normal speech, Normal strength at 5/5 x4 extr, Normal tone - Studies Laboratory Data (last 24 hrs) 03/22/20 21:45: PT 12.0, INR 1.02 03/22/20 21:45: WBC 5.3, Hgb 14.5, Hct 43.3, Plt Count 208 03/22/20 21:45: Sodium 139, Potassium 3.8, BUN 15, Creatinine 0.69, Glucose 116 H, Magnesium 2.4, Total Bilirubin 0.5, AST 84 H, ALT 97 H, Alkaline Phosphatase 60 <Cyrus Poe - Last Filed: 03/23/20 01:27> Assessment and Plan - Plan Assessment Chest pain rule out ACS Hypertension COVID + Plan Chest pain rule out ACS: Monitor on telemetry, trend troponins, cardiology consult in place. Continue with daily aspirin, statin therapy. Patient blood pressure on the low side, will hold off on beta vivi therapy. DVT prophylaxis with Lovenox. Hypertension: Obtain and continue home medications as appropriate, blood pressure around 105 systolic at this time, continue to monitor. COVID +: Patient without any dyspnea, tachypnea, room air saturations 98-100%. Patient currently not having any symptoms, will continue to monitor and address as needed. Discharge Plan: Home Plan to discharge in: 24 Hours - Advance Directives Does patient have a Living Will: No Does patient have a Durable POA for Healthcare: No - Code Status/Comfort Care Code Status Assessed: Yes (Full code) Critical Care: No Time Spent Managing Pts Care (In Minutes): 55 <Cyrus Poe - Last Filed: 03/23/20 01:27> - Plan Agree with plan of care as noted above by Cyrus Poe. trend troponin, monitor telemetry <Karan Hernandez - Last Filed: 03/27/20 20:26>
[2020-03-23] MEDS ORDERED: ONDANSETRON 4 MG/2 ML VIAL IV PRN (01:42)
[2020-03-23 01:55] VITALS: O2SAT 95; BMI 42.5
[2020-03-23 05:39] LABS: HDL Cholesterol 64 mg/dL (40-60); LDL Cholesterol, Calculated 76 (<130); Thyroid Stimulating Hormone 0.704 uIU/mL (0.360-3.740); Troponin I < 0.02 ng/mL (0.0-0.045)
--- NOTE | 2020-03-23 08:05 | RAD REPORT ---
EXAM DESCRIPTION: Luis Miguel Single View03/22/2020 9:51 pm CLINICAL HISTORY: Chest pain COMPARISON: 2014 FINDINGS: Mild bilateral pulmonary opacities. Heart is normal size IMPRESSION: Mild bilateral pulmonary opacities may indicate pneumonia
[2020-03-23] MEDS ORDERED: MORPHINE 2 MG/ML SYR IV PRN (08:44)
[2020-03-23] MEDS ORDERED: ACETAMINOPHEN 500 MG TAB PO PRN (08:44)
[2020-03-23] MEDS ORDERED: ASPIRIN EC 81 MG TAB PO ONE (08:50)
[2020-03-23] MEDS ORDERED: ENOXAPARIN 40 MG/0.4 ML SQ ONE (08:51)
[2020-03-23] MEDS ORDERED: INFLUENZA VACCINE (for 3y+) 0.5 ML DOSE IMVAC ONE (09:00)
[2020-03-23] MEDS ORDERED: PNEUMOCOCCAL VACCINE 0.5 ML IMVAC ONE (09:00)
[2020-03-23] MEDS ORDERED: ENOXAPARIN 40 MG/0.4 ML SQ SCH (09:00)
[2020-03-23] MEDS ORDERED: ASPIRIN EC 81 MG TAB PO SCH (09:00)
[2020-03-23] MEDS ORDERED: ACETAMINOPHEN 500 MG TAB ONE (09:04)
--- NOTE | 2020-03-23 11:32 | RAD REPORT ---
EXAM DESCRIPTION: CT - Chest For Pe Angio - 03/23/2020 5:43 am CLINICAL HISTORY: Chest pain;SOB COMPARISON: 09/26/2017 TECHNIQUE: CTA of the chest obtained following the uncomplicated intravenous administration of iodin ated contrast.. 3-D/MIP reformatted images of the chest available for evaluation. FINDINGS: Chest: Pulmonary arteries: Contrast bolus is adequate.No filling defects identified in the pulmonary arterie s to suggest pulmonary embolus. Thyroid: No abnormalities of the visualized thyroid. 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 Thoracic Aorta: Atherosclerotic calcification of the thoracic aorta. Heart: No cardiomegaly, significant pericardial effusion, or coronary artery atherosclerosis Lymph Nodes: No enlarged mediastinal lymph nodes identified. Esophagus: Small hiatal hernia. Postoperative change of the visualized stomach. Other: Right breast implant. Lungs: Multifocal bilateral peripheral groundglass opacities Pleura: No pleural effusion or pneumothorax. Trachea/Airways: No abnormalities of the visualized trachea or airways. Bones: Multilevel degenerative endplate spondylosis throughout the visualized spine. Upper Abdomen: Limited images of the upper abdomen demonstrate no definite abnormalities of visualize d portions of the liver or spleen. IMPRESSION: 1. No pulmonary embolus. 2. Multifocal bilateral peripheral groundglass opacities. Commonly reported imaging features of vir al pneumonia are present. Other processes such as influenza pneumonia and organizing pneumonia, as ca n be seen with drug toxicity and connective tissue disease, can cause a similar imaging pattern. PneT yp Reference: https://pubs.rsna.org/doi/full/10.1148/ryct.7155421397 This exam was performed according to our departmental dose-optimization program, which includes autom ated exposure control, adjustment of the mA and/or kV according to patient size and/or use of iterati ve reconstruction technique. Electronically signed by: Amos Rasmussen 03/22/2020 11:41 PM GUIDANCE COUNSELOR Due to temporary technical issues with the PACS/Fluency reporting system, reports are being signed by the in house radiologist without review as a courtesy to ensure prompt reporting. The interpreting r adiologist is fully responsible for the content of the report.
[2020-03-23] MEDS ORDERED: MORPHINE 2 MG/ML SYR ONE (13:02)
[2020-03-23 14:16] VITALS: BP 118/68; TEMP 98.5
[2020-03-23] MEDS ORDERED: ATORVASTATIN 40 MG TAB PO SCH (21:00)
--- NOTE | 2020-03-23 21:49 | P.DS ---
Admission Date: 03/23/20 Discharge Date: 03/23/20 Primary Care Provider: Dr. Velazquez Disposition: ROUTINE DISCHARGE Discharge Condition: GOOD Reason for Admission: Chest pain Consultations: Cardiology - Dr. Lundy Procedures: Problem List: Chest pain rule out ACS Hypertension COVID + Brief History of Present Illness: 65yo F, PMH: HTN, presented to ED with 2-3 days of constant chest pain. Patient also tested positive for COVID on 03/16/20. Patient reports for the last 2-3 days she has had sharp chest pain to the anterior chest wall radiating to the back, pain is not exacerbated or relieved by anything that she has noticed, patient denies previous pain similar to this. Patient also has recently had cosmetic breast surgery in mid February. Patient reports she has had stress tests in the past but and thinks it was probably about 5 years ago. Labs unremarkable, CT PE protocol negative for PE, consistent with b/l pulmonary opacities seen with COVID-19 pneumonia. EKG without acute changes. ED provider wishes to admit patient under observation for chest pain rule out. Hospital Course: Troponin remained negative x 3. Cardiology was consulted. TTE was normal. ACS was ruled out. She had atypical chest pain that seemed more pleuritic in nature. She was also found to have bilateral COVID-19 pneumonia. Her SpO2 remained 98- 100% on RA. She was discharged with a 2 week course of prednisone, advised on taking daily 81mg aspirin. She is to f/u with Dr. Stockton in 1-2 weeks reg renetta [facility]. She is to f/u with Dr. Lundy in the next 1-2 weeks for outpatient stress test if pain persists. Vital Signs/Physical Exam: Temp Pulse Resp BP Pulse Ox 98.5 F 82 16 118/68 95 03/23/20 14:15 03/23/20 14:15 03/23/20 14:15 03/23/20 14:15 03/23/20 14:15 General: Alert, In no apparent distress HEENT: Sclerae nonicteric Respiratory: Clear to auscultation bilaterally, Diminished (very slightly at bases) Cardiovascular: No edema, Regular rate/rhythm Gastrointestinal: Soft and benign, Non-distended, No tenderness Musculoskeletal: No erythema, No tenderness, Other (breast surgery scars - healing well, no evidence of infection/drainage) Integumentary: No rashes, No significant lesion Neurological: Normal speech, Normal affect Laboratory Data at Discharge: WBC 5.3 K/uL (4.3-10.9) 03/22/20 21:45 Hgb 14.5 g/dL (12.0-15.0) 03/22/20 21:45 Hct 43.3 % (36.0-45.0) 03/22/20 21:45 Plt Count 208 K/uL (152-406) 03/22/20 21:45 PT 12.0 SECONDS (9.5-12.5) 03/22/20 21:45 INR 1.02 03/22/20 21:45 Sodium 139 mmol/L (136-145) 03/22/20 21:45 Potassium 3.8 mmol/L (3.5-5.1) 03/22/20 21:45 BUN 15 mg/dL (7-18) 03/22/20 21:45 Creatinine 0.69 mg/dL (0.55-1.3) 03/22/20 21:45 Glucose 116 mg/dL (74-106) H 03/22/20 21:45 Magnesium 2.4 mg/dL (1.8-2.4) 03/22/20 21:45 Total Bilirubin 0.5 mg/dL (0.2-1.0) 03/22/20 21:45 AST 84 U/L (15-37) H 03/22/20 21:45 ALT 97 U/L (12-78) H 03/22/20 21:45 Alkaline Phosphatase 60 U/L (45-117) 03/22/20 21:45 Troponin I < 0.02 ng/mL (0.0-0.045) 03/23/20 11:46 Triglycerides 36 mg/dL (<150) 03/23/20 05:00 Cholesterol 147 mg/dL (<200) 03/23/20 05:00 HDL Cholesterol 64 mg/dL (40-60) H 03/23/20 05:00 Cholesterol/HDL Ratio 2.30 03/23/20 05:00 Home Medications: Aspirin [Aspirin EC 81 MG] 81 mg PO DAILY 30 Days #30 tablet. 03/23/20 lisinopriL [Lisinopril] 1 tab PO BEDTIME 01/20/21 predniSONE [Deltasone] 20 mg PO SEECOM 14 Days #21 tab 03/23/20 New Medications: Aspirin [Aspirin EC 81 MG] 81 mg PO DAILY 30 Days #30 tablet. predniSONE [Deltasone] 20 mg PO SEECOM 14 Days #21 tab Patient Discharge Instructions: You were found to have COVID-19 pneumonia. You are prescribed prednisone for 2 weeks and daily 81mg aspirin. Please call Dr. Earnest Stockton's office for follow up in ~[address] Lundy's office if chest pain persists to schedule outpatient stress test. Your cardiac enzymes, EKG, and echocardiogram were all normal. Your CT chest did not show any mass/lesions or blood clots in your lung Diet: Regular Activity: Ad jan Followup: Earnest Stockton MD [ACTIVE - CAN ADMIT] - 1 Week (Call for appointment) Nolberto Lundy MD [ACTIVE - CAN ADMIT] - 1 Week (Call for appointment) Mahad Velazquez MD [Primary Care Provider] - 1-2 Weeks (call for appointment) Time spent managing pt's care (in minutes): 40
--- NOTE | 2020-03-24 14:05 | ECHO ---
HEIGHT: 5 ft 3 in WEIGHT: 240 lb 0 oz DATE OF STUDY: 03/23/[address]: Nolberto Lundy MD 2-DIMENSIONAL: YES M.MODE: YES DOPPLER: NO COLOR FLOW: NO TDS: NO PORTABLE: NO DEFINITY: NO BUBBLE STUDY: NO DIAGNOSIS: CHEST PAIN CARDIAC HISTORY: CATHERIZATION: NO SURGERY: NO PROSTHETIC VALVE: NO PACEMAKER: NO MEASUREMENTS (cm) DIASTOLIC (NORMALS) SYSTOLIC (NORMALS) IVSd 1.0 (0.6-1.2) LA Diam 3.0 (1.9-4.0) LVEF 55-60% LVIDd 3.6 (3.5-5.7) LVIDs 2.3 (2.0-3.5) %FS 37% LVPWd 1.0 (0.6-1.2) Ao Diam 2.8 (2.0-3.7) 2 DIMENSIONAL ASSESSMENT: RIGHT ATRIUM: LEFT ATRIUM: RIGHT VENTRICLE: LEFT VENTRICLE: TRICUSPID VALVE: MITRAL VALVE: PULMONIC VALVE: AORTIC VALVE: PERICARDIAL EFFUSION: AORTIC ROOT: LEFT VENTRICULAR WALL MOTION: DOPPLER/COLOR FLOW: NOT REQUESTED. COMMENTS: FOCUSED STUDY. LEFT VENTRICULAR EJECTION FRACTION APPEARS NORMAL AT 55-60% TECHNOLOGIST: BLUE GARCIA
--- NOTE | 2020-03-28 09:19 | CON ---
Date of Consultation: 03/23/2020 The patient admitted on 03/23/[address] Hernandez. I saw the patient on 03/23/2020. Reason For Consultation: Chest pain. History Of Present Illness: Ms. Tellez is a 65-year-old woman, who was recently diagnosed with COVID. Comes in complaining of chest pain, most at the diaphragma that radiates to the back. Has had coug h, headache. Denied any PND, orthopnea, pedal edema, nausea, vomiting, diaphoresis, palpitations, or syncope. Has had no fever, but she has had some chills. Allergies: SHE HAS NO ALLERGIES. Past Medical History: Only include hypertension. Past Surgical History: She is status post hip surgery, knee surgery, and cholecystectomy. Review of Systems: Negative. Social History: Negative. Family History: Noncontributory. Medications: At home include lisinopril 10 mg daily. Physical Examination: Vital Signs: Stable. She was afebrile. HEENT: Negative. Neck: Supple without any bruit, lymphadenopathy, JVD, or thyromegaly. Chest: Clear to auscultation and percussion. Cardiac: Revealed a regular rhythm and rate. No murmurs, gallops, or rubs. Abdomen: Benign. Extremities: Revealed no clubbing, cyanosis, or edema. Diagnostic Data: Chest x-ray showed mild bilateral pulmonary opacities consistent with pneumonia. S he had a CT angiogram showing no pulmonary embolus, but multifocal bilateral peripheral ground-glass opacities consistent with viral pneumonia. By the time I saw Ms. Tellez, an echocardiogram had been d one and it showed a technically difficult study, but she had an ejection fraction of 55% to 60% witho ut any effusion or clear-cut wall motion abnormalities. Her laboratory evaluations were unremarkable , except some mild elevation in her liver function tests. Her troponin and BNP were negative. She w as COVID positive. Impression And Plan: 1.Atypical chest pain, most likely secondary to pneumonia. 2.Hypertension, well controlled. She has already had a normal echo, normal BNP, normal troponin. E KG is unremarkable. I would personally continue her present regimen, treat her COVID pneumonia. She can be discharged whenever it is okay with Dr. Hernandez. No need for any further cardiac workup at thi s point. NB/MODL Voice ID: [id number] Report ID: [id number]
== END 2020-03-23 16:45 | disposition home or self-care (01) ==
LOC: ER 18:32 → ERHOLD 03-23 01:26 → 4TH 03-23 12:43
PROVIDERS: ADMIT Hospitalist; ATTEND Hospitalist
DX: U07.1 COVID-19 (principal); J12.82 Pneumonia due to coronavirus disease 2019; I10 Essential (primary) hypertension; R94.31 Abnormal electrocardiogram [ECG] [EKG]
CPT/HCPCS: 96365; 96361; 93307; 93005; 85025; 80048; 36415; 83735; 85610; 80061; 85379; 80076; 84443; 84484 ×3; 84439; 83880; 71275; 71045; 96375; 99285; U0003; Q9967; J0456; J1650; J2270; J2175; J0696; J7050 ×2; J7040; J2405; J2920; G0378